=== PATIENT | female | born 1970 | race Caucasian/White ===

== ENCOUNTER 2016-09-08 19:32 | Emergency (ER) | payer MEDICARE, MEDICAID ==
[~2016-09-08] VITALS: Ht 162.6 cm; Wt 89.0 kg
[~2016-09-08 19:32] MED LIST: ACTO30TA10 PO; ALBUAER3 INH; IPRA17I INH; LISI10TA3 PO; NORT10CA PO; OMEP40CA2 PO; ONDA4TAB7 SL; PERC5TAB12 PO; PRAV20TA2 PO
[2016-09-08 19:34] VITALS: BP 171/85; PULSE 80; RESP 14; TEMP 97.9; O2SAT 97
--- NOTE | 2016-09-08 20:10 | PD ---
Physical Exam Date Seen by Provider: Sep 08, 2016 Time Seen by Provider: 20:06 Narrative Patient seen in triage with Miriad complaints of Generalized Pain and reports of syncope today. Patient reports Nausea and vomiting the past 24 hours. Patient also complains of SOB. Patient has Hx. Pancreatitis for which she sees Pain Management. Patient noted to be speaking in full sentences and ambulating normally. Vital Signs stable. Patient waiting for Bed Placement. Data Data Last Documented VS Vital Signs Date Time Temp Pulse Resp B/P Pulse Ox O2 Delivery O2 Flow Rate FiO2 09/08/16 19:34 97.9 80 14 171/85 97 Room Air [facility] Medical Record Reviewed: Yes Supervised Visit with ALBA: Yes Condition: Stable Pio Urrutia Sep 08, 2016 20:09
[2016-09-09] MEDS ORDERED: ONDANSETRON ODT 4 MG TAB PO ONE (00:15)
[2016-09-09 00:44] LABS: AUTOMATED NEUTROPHIL # 3.5 TH/MM3 (1.8-7.7); BASOPHIL # 0.1 TH/MM3 (0-0.2); BASOPHIL % 1.1 % (0.0-2.0); EOSINOPHIL # 0.1 TH/MM3 (0-0.4); EOSINOPHIL % 0.8 % (0.0-4.0); HEMATOCRIT 46.2 % (35.0-46.0); HEMO FLAGS DIFF FINAL; LYMPH % 36.7 % (9.0-44.0); LYMPHOCYTE # 2.4 TH/MM3 (1.0-4.8); MEAN CELL VOLUME 89.4 FL (80.0-100.0); MEAN CORPUSCULAR HEMOGLOBIN 29.5 PG (27.0-34.0); MONO % 6.8 % (0.0-8.0); NEUT % 54.6 % (16.0-70.0); PLATELET COUNT 244 TH/MM3 (150-450); RED BLOOD COUNT 5.17 MIL/MM3 (4.00-5.30); RED CELL DISTRIBUTION WIDTH 14.6 % (11.6-17.2); WHITE BLOOD COUNT 6.5 TH/MM3 (4.0-11.0)
[2016-09-09 01:00] VITALS: BP 156/78; PULSE 83; RESP 16; O2SAT 100
[2016-09-09 01:05] LABS: ALKALINE PHOSPHATASE 69 U/L (45-117); TOTAL BILIRUBIN ADULT 0.7 MG/DL (0.2-1.0)
[2016-09-09 01:08] LABS: ALT (GPT) 45 U/L (10-53); ANION GAP 7 MEQ/L (5-15); AST (GOT) 14 U/L (15-37); BICARBONATE 29.1 MEQ/L (21.0-32.0); BLOOD UREA NITROGEN 13 MG/DL (7-18); CHLORIDE 103 MEQ/L (98-107); GLOMERULAR FILTRATION RATE 103 ML/MIN (>89); POTASSIUM 4.2 MEQ/L (3.5-5.1); SODIUM (NA) 139 MEQ/L (136-145)
[2016-09-09 01:18] LABS: BACTERIA, URINE MANY /hpf; BLOOD, URINE NEG (NEG); COMMENT (UR) CULTURE INDICATED; CULTURE IF INDICATED CULTURE INDICATED; GLUCOSE,URINE 1000 mg/dL (NEG); KETONE, URINE 10 mg/dL (NEG); MUCUS URINE FEW /lpf (OCC); NITRITE,URINE NEG (NEG); SQUAMOUS EPITHELIAL CELL URINE 1 /hpf (0-5); URINE COLOR YELLOW (YELLW/STRAW)
--- NOTE | 2016-09-09 02:14 | PD ---
HPI Chief Complaint: GI Complaint Time Seen by Provider: 01:56 Travel History International Travel<30 days: No Contact w/Intl Traveler<30days: No Traveled to known affect area: No History of Present Illness HPI 46yo F with PMH of chronic back pain who follows with pain management for 3 months is here requesting pain medication through the IV. States the hydrocodone they give is too low and needs something through IV. States she is nauseous. Pt denies any trauma, fever, chest pain, sob, abdominal pain, urinary complaints, focal weakness or numbness. PFSH Past Medical History Blood Disorders: No Cancer: No Cardiovascular Problems: Yes (HTN) Cerebrovascular Accident: Yes (2011) Diabetes: Yes (PIOGLITAZONE) Patient Takes Glucophage: No Diminished Hearing: No Endocrine: No Genitourinary: Yes (NEUROGENIC BLADDER- SELF CATHS) Immune Disorder: No Kidney Stones: Yes Musculoskeletal: Yes (CHRONIC BACK PROBS) Neurologic: No Psychiatric: No Reproductive: No Respiratory: Yes (COPD) Immunizations Current: Yes Renal Failure: No Tetanus Vaccination: > 5 Years Influenza Vaccination: Yes ?: Not : 7 Para: 5 Miscarriage: 2 : 0 Tubal Ligation: Yes Past Surgical History Abdominal Surgery: No Cardiac Surgery: No Section: Yes Ear Surgery: No Endocrine Surgery: No Eye Surgery: No Genitourinary Surgery: No Gynecologic Surgery: Yes ( X2) Mastectomy: No Oral Surgery: No Thoracic Surgery: No Other Surgery: Yes (suprapubic catheter) Social History Alcohol Use: No Tobacco Use: No Substance Use: No Allergies-Medications (Allergen,Severity, Reaction): Coded Allergies: Morphine (Verified Allergy, Severe, 09/09/16) Reported Meds & Prescriptions Reported Meds & Active Scripts Active Ibuprofen 600 Mg Tab 600 Mg PO Q8HR PRN Ondansetron Odt 4 Mg Tab 4 Mg SL Q6HR PRN Percocet (Oxycodone-Acetaminophen) 5-325 mg Tab 1 Tab PO Q6H Nortriptyline (Nortriptyline HCl) 10 Mg Cap 10 Mg PO DAILY Pravastatin 20 Mg Tab 20 Mg PO DAILY Actos (Pioglitazone HCl) 30 Mg Tab 30 Mg PO DAILY Omeprazole 40 Mg Cap 40 Mg PO DAILY Atrovent HFA 12.9 GM Inh (Ipratropium [place]) 17 Mcg/Act Aer 1 Puff INH QID Lisinopril 10 Mg Tab 10 Mg PO DAILY Proair Hfa 8.5 GM Inh (Albuterol Sulfate) 90 Mcg/Act Aer 2 Puff INH Q4HR PRN 108 mcg/actuation Review of Systems Except as stated in HPI: all other systems reviewed are Neg Physical Exam Narrative GENERAL: 46yo F not in distress. SKIN: Focused skin assessment warm/dry. HEAD: Atraumatic. Normocephalic. EYES: Pupils equal and round. No scleral icterus. No injection or drainage. ENT: No nasal bleeding or discharge. Mucous membranes pink and moist. NECK: Trachea midline. No JVD. CARDIOVASCULAR: Regular rate and rhythm. No murmur appreciated. RESPIRATORY: No accessory muscle use. Clear to auscultation. Breath sounds equal bilaterally. GASTROINTESTINAL: Abdomen soft, non-tender, nondistended. BACK: No midline ttp. Paraspinal lumbar ttp on both sides. MUSCULOSKELETAL: No obvious deformities. No clubbing. No cyanosis. No edema. NEUROLOGICAL: Awake and alert. No obvious cranial nerve deficits. Motor grossly within normal limits. Normal speech. PSYCHIATRIC: Appropriate mood and affect; insight and judgment normal. Data Data Last Documented VS Vital Signs Date Time Temp Pulse Resp B/P Pulse Ox O2 Delivery O2 Flow Rate FiO2 09/09/16 01:00 83 16 156/78 100 Room Air 09/08/16 19:34 97.9 Orders Complete Blood Count With Diff (09/09/16 00:15) Comprehensive Metabolic Panel (09/09/16 00:15) Lipase (09/09/16 00:15) Urinalysis - C+S If Indicated (09/09/16 00:15) Iv Access Insert/Monitor (09/09/16 00:15) Ondansetron Odt (Zofran Odt) (09/09/16 00:15) Ed Urine Pregnancytest Poc (09/09/16 00:15) Urine Culture (09/09/16 00:25) Ketorolac Inj (Toradol Inj) (09/09/16 02:15) Ceftriaxone Inj (Rocephin Inj) (09/09/16 02:15) Labs Laboratory Tests Test 09/09/16 00:25 White Blood Count 6.5 TH/MM3 Red Blood Count 5.17 MIL/MM3 Hemoglobin 15.3 GM/DL Hematocrit 46.2 % Mean Corpuscular Volume 89.4 FL Mean Corpuscular Hemoglobin 29.5 PG Mean Corpuscular Hemoglobin 33.0 % Concent Red Cell Distribution Width 14.6 % Platelet Count 244 TH/MM3 Mean Platelet Volume 7.4 FL Neutrophils (%) (Auto) 54.6 % Lymphocytes (%) (Auto) 36.7 % Monocytes (%) (Auto) 6.8 % Eosinophils (%) (Auto) 0.8 % Basophils (%) (Auto) 1.1 % Neutrophils # (Auto) 3.5 TH/MM3 Lymphocytes # (Auto) 2.4 TH/MM3 Monocytes # (Auto) 0.4 TH/MM3 Eosinophils # (Auto) 0.1 TH/MM3 Basophils # (Auto) 0.1 TH/MM3 CBC Comment DIFF FINAL Differential Comment Urine Color YELLOW Urine Turbidity CLOUDY Urine pH 8.0 Urine Specific [place] 1.024 Urine Protein 100 mg/dL Urine Glucose (UA) 1000 mg/dL Urine Ketones 10 mg/dL Urine Occult Blood NEG Urine Nitrite NEG Urine Bilirubin NEG Urine Urobilinogen 2.0 MG/DL Urine Leukocyte Esterase LARGE Urine RBC 10 /hpf Urine WBC 40 /hpf Urine Squamous Epithelial 1 /hpf Cells Urine Bacteria MANY /hpf Urine Mucus FEW /lpf Urine Yeast (Budding) MANY Microscopic Urinalysis Comment CULTURE INDICATED Sodium Level 139 MEQ/L Potassium Level 4.2 MEQ/L Chloride Level 103 MEQ/L Carbon Dioxide Level 29.1 MEQ/L Anion Gap 7 MEQ/L Blood Urea Nitrogen 13 MG/DL Creatinine 0.62 MG/DL Estimat Glomerular Filtration 103 ML/MIN Rate Random Glucose 143 MG/DL Calcium Level 9.0 MG/DL Total Bilirubin 0.7 MG/DL Aspartate Amino Transf 14 U/L (AST/SGOT) Alanine Aminotransferase 45 U/L (ALT/SGPT) Alkaline Phosphatase 69 U/L Total Protein 7.6 GM/DL Albumin 4.3 GM/DL Lipase 82 U/L [facility] Medical Decision Making Medical Screen Exam Complete: Yes Emergency Medical Condition: Yes Interpretation(s) Laboratory Tests Test 09/09/16 00:25 White Blood Count 6.5 TH/MM3 (4.0-11.0) Red Blood Count 5.17 MIL/MM3 (4.00-5.30) Hemoglobin 15.3 GM/DL (11.6-15.3) Hematocrit 46.2 % (35.0-46.0) Mean Corpuscular Volume 89.4 FL (80.0-100.0) Mean Corpuscular Hemoglobin 29.5 PG (27.0-34.0) Mean Corpuscular Hemoglobin 33.0 % Concent (32.0-36.0) Red Cell Distribution Width 14.6 % (11.6-17.2) Platelet Count 244 TH/MM3 (150-450) Mean Platelet Volume 7.4 FL (7.0-11.0) Neutrophils (%) (Auto) 54.6 % (16.0-70.0) Lymphocytes (%) (Auto) 36.7 % (9.0-44.0) Monocytes (%) (Auto) 6.8 % (0.0-8.0) Eosinophils (%) (Auto) 0.8 % (0.0-4.0) Basophils (%) (Auto) 1.1 % (0.0-2.0) Neutrophils # (Auto) 3.5 TH/MM3 (1.8-7.7) Lymphocytes # (Auto) 2.4 TH/MM3 (1.0-4.8) Monocytes # (Auto) 0.4 TH/MM3 (0-0.9) Eosinophils # (Auto) 0.1 TH/MM3 (0-0.4) Basophils # (Auto) 0.1 TH/MM3 (0-0.2) CBC Comment DIFF FINAL Differential Comment Urine Color YELLOW (YELLW/STRAW) Urine Turbidity CLOUDY (CLEAR) Urine pH 8.0 (5.0-8.5) Urine Specific [place] 1.024 (1.002-1.035) Urine Protein 100 mg/dL (NEG-TRACE) Urine Glucose (UA) 1000 mg/dL (NEG) Urine Ketones 10 mg/dL (NEG) Urine Occult Blood NEG (NEG) Urine Nitrite NEG (NEG) Urine Bilirubin NEG (NEG) Urine Urobilinogen 2.0 MG/DL (LESS THAN 2.0) Urine Leukocyte Esterase LARGE (NEG) Urine RBC 10 /hpf (0-3) Urine WBC 40 /hpf (0-5) Urine Squamous Epithelial 1 /hpf (0-5) Cells Urine Bacteria MANY /hpf (NONE) Urine Mucus FEW /lpf (OCC) Urine Yeast (Budding) MANY (NONE) Microscopic Urinalysis Comment CULTURE INDICATED Sodium Level 139 MEQ/L (136-145) Potassium Level 4.2 MEQ/L (3.5-5.1) Chloride Level 103 MEQ/L (98-107) Carbon Dioxide Level 29.1 MEQ/L (21.0-32.0) Anion Gap 7 MEQ/L (5-15) Blood Urea Nitrogen 13 MG/DL (7-18) Creatinine 0.62 MG/DL (0.50-1.00) Estimat Glomerular Filtration 103 ML/MIN Rate (>89) Random Glucose 143 MG/DL (74-106) Calcium Level 9.0 MG/DL (8.5-10.1) Total Bilirubin 0.7 MG/DL (0.2-1.0) Aspartate Amino Transf 14 U/L (15-37) (AST/SGOT) Alanine Aminotransferase 45 U/L (10-53) (ALT/SGPT) Alkaline Phosphatase 69 U/L (45-117) Total Protein 7.6 GM/DL (6.4-8.2) Albumin 4.3 GM/DL (3.4-5.0) Lipase 82 U/L (73-393) Differential Diagnosis Chronic pain vs. malingering Narrative Course 46yo F with chronic back pain requesting pain medication. Labs reviewed, no leukocytosis. Glucose 143. Lipase normal. LFTs normal. UA showed large leukocyte. Pt given ceftriaxone and toradol for pain. Return precautions given. Diagnosis Primary Impression: Chronic back pain Qualified Code: M54.5 - Chronic bilateral low back pain without sciatica Additional Impression: UTI (urinary tract infection) Qualified Code: N39.0 - Urinary tract infection without hematuria, site unspecified Patient Instructions: General Instructions Departure Forms: Tests/Procedures Additional Instructions: Please follow up with your pain management for further management of your chronic back pain. Return to the ED if symptoms worsen. Med/Other Pt SpecificInfo: Prescription(s) given Scripts Ciprofloxacin 250 Mg [id number] Mg PO BID 3 Days Ref 0 Prov:Angelina Gomez DO 09/09/16 Ibuprofen 600 Mg [id number] Mg PO Q8HR PRN (PAIN) #20 TAB Ref 0 Prov:Angelina Gomez DO 09/09/16 Disposition: 01 DISCHARGE HOME Condition: Stable Angelina Gomez DO Sep 09, 2016 02:14
[2016-09-09] MEDS ORDERED: KETOROLAC TROMETHAMINE 30 MG/ML (IVP) VIAL IV PUSH ONE (02:15)
[2016-09-09] MEDS ORDERED: cefTRIAXone INJ 1,000 MG in SODIUM CHLORIDE 0.9% INJ 100 ML IV ONE (02:15)
[2016-09-09] MEDS ORDERED: IBUP-232 PO (04:17)
[2016-09-09] MEDS ORDERED: CIPR250T2 PO (04:27)
[2016-09-09 05:06] VITALS: BP 135/77
[2016-10-02] MEDS ORDERED: PERC5TAB12 PO (15:18)
[2016-10-13] MEDS ORDERED: ALBUAER3 INH (15:37)
[2016-10-26] MEDS ORDERED: PIOG45TA3 PO (09:31)
[2016-10-31] MEDS ORDERED: PERC5TAB12 PO (15:19)
[2016-12-01] MEDS ORDERED: PERC5TAB12 PO (12:52)
== END 2016-09-09 05:08 | disposition home or self-care (01) ==
LOC: NEPC 19:32
DX: M54.5 Low back pain (principal); G89.29 Other chronic pain; N39.0 Urinary tract infection, site not specified; B96.20 Unspecified Escherichia coli [E. coli] as the cause of diseases classified elsewhere
CPT/HCPCS: 80053; 81001; 83690; 84703; 85025; 87077; 87086; 87186; 96374; 96375; 99284; J0696; J1885

== ENCOUNTER 2016-09-25 19:55 | Emergency (ER) | payer MEDICARE, MEDICAID ==
[~2016-09-25] VITALS: Ht 162.6 cm; Wt 89.0 kg
[~2016-09-25 19:55] MED LIST changes: +CIPR250T2 PO; +IBUP-232 PO
[2016-09-25 19:59] VITALS: BP 146/75; PULSE 100; RESP 16; TEMP 97.5; O2SAT 98
[2016-09-25] MEDS ORDERED: HYDR-3516 PO (23:02)
[2016-09-25] MEDS ORDERED: BUSP15TA PO (23:03)
[2016-09-25] MEDS ORDERED: LURA40 PO (23:03)
[2016-09-25 23:15] VITALS: BP 149/90; PULSE 92; RESP 18; O2SAT 99
[2016-09-25] MEDS ORDERED: SODIUM CHLORID 0.9% 500 ML INJ 500 ML IV ONE (23:15)
[2016-09-25] MEDS ORDERED: PANTOPRAZOLE SODIUM 40 MG VIAL IV PUSH ONE (23:15)
[2016-09-25] MEDS ORDERED: ONDANSETRON HCL 4 MG/2 ML VIAL IV ONE (23:15)
[2016-09-25] MEDS ORDERED: ASPIRIN 81 MG CHEW TAB CHEW ONE (23:15)
[2016-09-25] MEDS ORDERED: SODIUM CHLORIDE 0.9% FLUSH 10 ML FLUSH IVF PRN (23:15)
--- NOTE | 2016-09-25 23:18 | PD ---
HPI Chief Complaint: Back/ Neck Pain or Injury Time Seen by Provider: 23:00 Travel History International Travel<30 days: No Contact w/Intl Traveler<30days: No Traveled to known affect area: No History of Present Illness HPI The patient is a 46 year old female who presents to the [facility] emergency department with a history of reported chronic back pain that has been worse over the last 2 months in spite of treatment by her pain management doctor. She reports that on July 26 she received injections in her back and on August 16 she also received injections in her back without relief. She reports that she asked her pain management doctor to increase her pain medication prescription, however they have not done this at this point. The patient additionally was recently seen in the emergency department related to an exacerbation of back pain and was diagnosed with a urinary tract infection. Urine culture came back positive for Escherichia coli that was not sensitive to Cipro. The patient was given a prescription for Cipro for 3 days. The patient reports that she was called back and a new prescription was prescribed, however she does not know the name of the antibiotic that she continues to be on. She reports having decreased urine output today. She denies having any dysuria or urinary urgency. She reports having bilateral flank pain. She reports that she has nausea related to her pain and did have vomiting 3 days ago. She denies any vomiting over the last 2 days. She denies having any changes in her stools. She reports that she last moved her bowels earlier today. The patient reports that today she also began to have a burning sensation in her left side of her chest. She reports that she has chronic shortness of breath related to bronchitis and asthma. She reports the chest pain has been constant. She reports that she did have a stress test done recently. Her last chemical stress test was done April 26, 2016 and according to the record Wiley was unremarkable. The patient denies any recent fevers, worsening cough or congestion, neck pain, or neurologic symptoms. The patient reports that she has not been eating or drinking well throughout the day today. She reports that she spent most of the day in bed. [facility] Past Medical History Narrative Medical The patient's past medical history significant for diabetes mellitus, hyperlipidemia, high blood pressure, history of chronic pain, history of headaches, history of psychiatric disorder, posttraumatic stress disorder, history of neurogenic bladder with history of self cathetering, history of cerebrovascular accident in 2011 Blood Disorders: No Anxiety: Yes Depression: Yes Cancer: No Cardiovascular Problems: Yes (HTN) Cerebrovascular Accident: Yes (2011) Diabetes: Yes (PIOGLITAZONE) Patient Takes Glucophage: No Diminished Hearing: No Endocrine: No Genitourinary: Yes (NEUROGENIC BLADDER- SELF CATHS) Immune Disorder: No Kidney Stones: Yes Musculoskeletal: Yes (CHRONIC BACK PROBS) Neurologic: No Psychiatric: No Reproductive: No Respiratory: Yes (COPD) Immunizations Current: Yes Renal Failure: No ?: Not LMP: 09/14/2016 : 7 Para: 5 Miscarriage: 2 : 0 Tubal Ligation: Yes Past Surgical History Narrative Surgical The patient's past surgical history is significant for a 2. Abdominal Surgery: No Cardiac Surgery: No Section: Yes Ear Surgery: No Endocrine Surgery: No Eye Surgery: No Genitourinary Surgery: No Gynecologic Surgery: Yes ( X2) Mastectomy: No Oral Surgery: No Thoracic Surgery: No Other Surgery: Yes (suprapubic catheter) Social History Alcohol Use: No Tobacco Use: No Substance Use: No Allergies-Medications (Allergen,Severity, Reaction): Coded Allergies: Morphine (Verified Allergy, Severe, 09/09/16) Reported Meds & Prescriptions Reported Meds & Active Scripts Active Ciprofloxacin (Ciprofloxacin HCl) 250 Mg Tab 250 Mg PO BID 3 Days Ibuprofen 600 Mg Tab 600 Mg PO Q8HR PRN Ondansetron Odt 4 Mg Tab 4 Mg SL Q6HR PRN Percocet (Oxycodone-Acetaminophen) 5-325 mg Tab 1 Tab PO Q6H Nortriptyline (Nortriptyline HCl) 10 Mg Cap 10 Mg PO DAILY Pravastatin 20 Mg Tab 20 Mg PO DAILY Actos (Pioglitazone HCl) 30 Mg Tab 30 Mg PO DAILY Omeprazole 40 Mg Cap 40 Mg PO DAILY Atrovent HFA 12.9 GM Inh (Ipratropium [place]) 17 Mcg/Act Aer 1 Puff INH QID Lisinopril 10 Mg Tab 10 Mg PO DAILY Proair Hfa 8.5 GM Inh (Albuterol Sulfate) 90 Mcg/Act Aer 2 Puff INH Q4HR PRN 108 mcg/actuation Reported Buspirone (Buspirone HCl) 15 Mg Tab 15 Mg PO DAILY Latuda (Lurasidone) 40 Mg Tab 40 Mg PO DAILY Hydrocodone-Acetaminophen 5-325 mg Tab 1 Tab PO Q12HR PRN Review of Systems General / Constitutional: No: Fever Eyes: No: Visual changes HENT: No: Headaches Cardiovascular: Positive: Chest Pain or Discomfort, Dyspnea on exertion Respiratory: Positive: Shortness of Breath Gastrointestinal: Positive: Nausea, Vomiting, Abdominal Pain, Indigestion, Loss of Appetite, No: Diarrhea, Hematemesis, Hematochezia, Constipation, Changes in Bowel Habits Genitourinary: Positive: Decreased Urinary Output, Flank Pain (bilateral flank pain), No: Dysuria Musculoskeletal: No: Pain Skin: No Rash Neurologic: No: Weakness, Focal Abnormalities, Change in Mentation, Slurred Speech, Sensory Disturbance Psychiatric: No: Depression Endocrine: No: Polydipsia Hematologic/Lymphatic: No: Easy Bruising Physical Exam Narrative General: The patient is a well-developed well-nourished female in no acute distress. Head and Neck exam: Head is normocephalic atraumatic. Eyes: EOMI, pupils are equal round and reactive to light. Nose: Midline septum with pink mucous membranes Mouth: Dentition unremarkable. Moist mucus membranes. Posterior oropharynx is not erythematous. No tonsillar hypertrophy. Uvula midline. Airway patent. Neck: No palpable lymphadenopathy. No nuchal rigidity. No thyromegaly. Cardiovascular: Regular rate and rhythm without murmurs, gallops, or rubs. No pulse deficit to the extremities. Lungs: Clear to auscultation bilaterally. No wheezes, rhonchi, or rales. Abdomen: Soft, without tenderness to palpation in all 4 quadrants of the abdomen. No guarding, rebound, or rigidity. Normal bowel sounds are audible. No tenderness on palpation of McBurney's point. Negative Gonzalez's sign. Extremities: No clubbing, cyanosis, or edema. 2+ pulses in all 4 extremities. Back: No spinous process tenderness to palpation. Bilateral CVA tenderness on palpation. Neurologic Exam: Grossly nonfocal. Skin Exam: No rash noted. Intact skin that is warm and dry. Data Data Last Documented VS Vital Signs Date Time Temp Pulse Resp B/P Pulse Ox O2 Delivery O2 Flow Rate FiO2 09/25/16 19:59 97.5 100 16 146/75 98 Room Air Orders Electrocardiogram (09/25/16 23:09) B-Type Natriuretic Peptide (09/25/16 23:09) Ckmb (Isoenzyme) Profile (09/25/16 23:09) Complete Blood Count With Diff (09/25/16 23:09) Comprehensive Metabolic Panel (09/25/16 23:09) Magnesium (Mg) (09/25/16 23:09) Prothrombin Time / Inr (Pt) (09/25/16 23:09) Act Partial Throm Time (Ptt) (09/25/16 23:09) Troponin I (09/25/16 23:09) Lipase (09/25/16 23:09) Chest, Single Ap (09/25/16 23:09) Ecg Monitoring (09/25/16 23:09) Bilateral Bp Monitoring (09/25/16:) Iv Access Insert/Monitor (09/25/16:) Oximetry (09/25/16 23:09) Oxygen Administration (09/25/16 23:09) Sodium Chloride 0.9% Flush (Ns Flush) (09/25/16 23:15) Urinalysis - C+S If Indicated (09/25/16 23:09) Ed Urine Pregnancytest Poc (09/25/16 23:09) Sodium Chlorid 0.9% 500 Ml Inj (Ns 500 M (09/25/16 23:15) Pantoprazole Inj (Protonix Inj) (09/25/16 23:15) Aspirin Chew (Aspirin Chew) (09/25/16 23:15) Ondansetron Inj (Zofran Inj) (09/25/16 23:15) Urine Culture (09/25/16 23:35) Hydromorphone Pf Inj (Dilaudid Pf Inj) (09/26/16 00:00) Ceftriaxone Inj (Rocephin Inj) (09/26/16 00:15) Labs Laboratory Tests Test 09/25/16 09/25/16 23:25 23:35 White Blood Count 7.0 TH/MM3 Red Blood Count 5.11 MIL/MM3 Hemoglobin 15.3 GM/DL Hematocrit 44.7 % Mean Corpuscular Volume 87.5 FL Mean Corpuscular Hemoglobin 30.0 PG Mean Corpuscular Hemoglobin 34.3 % Concent Red Cell Distribution Width 14.3 % Platelet Count 294 TH/MM3 Mean Platelet Volume 7.8 FL Neutrophils (%) (Auto) 60.6 % Lymphocytes (%) (Auto) 30.2 % Monocytes (%) (Auto) 7.2 % Eosinophils (%) (Auto) 1.0 % Basophils (%) (Auto) 1.0 % Neutrophils # (Auto) 4.2 TH/MM3 Lymphocytes # (Auto) 2.1 TH/MM3 Monocytes # (Auto) 0.5 TH/MM3 Eosinophils # (Auto) 0.1 TH/MM3 Basophils # (Auto) 0.1 TH/MM3 CBC Comment DIFF FINAL Differential Comment Prothrombin Time 10.1 SEC Prothromb Time International 0.9 RATIO Ratio Activated Partial 23.9 SEC Thromboplast Time Sodium Level 136 MEQ/L Potassium Level 3.9 MEQ/L Chloride Level 100 MEQ/L Carbon Dioxide Level 27.3 MEQ/L Anion Gap 9 MEQ/L Blood Urea Nitrogen 9 MG/DL Creatinine 0.68 MG/DL Estimat Glomerular Filtration 93 ML/MIN Rate Random Glucose 194 MG/DL Calcium Level 8.9 MG/DL Magnesium Level 1.7 MG/DL Total Bilirubin 0.3 MG/DL Aspartate Amino Transf 16 U/L (AST/SGOT) Alanine Aminotransferase 47 U/L (ALT/SGPT) Alkaline Phosphatase 81 U/L Total Creatine Kinase 37 U/L Troponin I LESS THAN 0.02 NG/ML Total Protein 7.4 GM/DL Albumin 3.9 GM/DL Lipase 99 U/L Urine Color YELLOW Urine Turbidity HAZY Urine pH 5.0 Urine Specific Lynn 1.033 Urine Protein TRACE mg/dL Urine Glucose (UA) 1000 mg/dL Urine Ketones TRACE mg/dL Urine Occult Blood TRACE Urine Nitrite NEG Urine Bilirubin NEG Urine Urobilinogen LESS THAN 2.0 MG/DL Urine Leukocyte Esterase SMALL Urine RBC 2 /hpf Urine WBC 19 /hpf Urine Squamous Epithelial 1 /hpf Cells Urine Bacteria MOD /hpf Urine Mucus MANY /lpf Microscopic Urinalysis Comment CULTURE INDICATED MDM Medical Decision Making Medical Screen Exam Complete: Yes Emergency Medical Condition: Yes Medical Record Reviewed: Yes Interpretation(s) Last Impressions Chest X-Ray 09/25/16 [id number] Signed Impressions: Service Date/Time: Sunday, September 25, 2016 23:37 - CONCLUSION: Normal examination. Sachin Velasco MD Differential Diagnosis Pyelonephritis, versus kidney stone, versus exacerbation of chronic pain. Narrative Course During the course of the patients emergency department visit, the patients history, examination, and differential diagnosis were reviewed with the patient. The patient had IV access obtained and blood work sent for analysis. The patient was placed on a night monitor with oximetry and blood pressure monitoring. The patient's electronic medical record was reviewed. The patient last had a stress test done in the chest pain center in April 26, 2016. This is a chemical stress test that was reportedly negative. The patient had an EKG done today that reveals a sinus rhythm heart rate of 82, no acute ST segment elevation or depression. The patient was initially provided aspirin 162 mg by mouth 1, Protonix 40 mg IV , normal saline a 500 mL bolus 1, hydromorphone 0.5 mg IV, Zofran 4 mg IV. The patients laboratory studies were reviewed and remarkable for a CBC that is within normal limits, PT 10.1, PTT 23.9, urinalysis shows about glucose trace ketones trace occult blood, small leukocyte Estrace 2 RBCs 19 WBCs 1 squamous epithelial cell, moderate bacteria, many mucus, culture indicated. Based on the patient's prior urine culture the patient was given Rocephin 1 g IV as the patient's Escherichia coli was sensitive to this. CMP is remarkable for a glucose of 194, CPK 37, troponin I less than 0.02, lipase 99 Radiology studies were reviewed and remarkable for a chest x-ray that shows no acute abnormality. Unfortunately, the patient is not able to recall what antibiotic she was previously placed on for her urinary tract infection. The patient was treated with a dose of IV Rocephin which her urinary tract infection is sensitive to. The patient will be discharged home with a prescription for Cefuroxime for 10 days. Regarding the patient's chronic back pain, she was instructed to follow- up with her pain management doctor in the morning to further discuss management options. The patient is resting comfortably and feels better, is alert and in no distress. The patients results and examination findings were discussed with the patient. The repeat examination is unremarkable and benign. The history, exam, diagnostic testing, and current condition do not suggest any significant pathology to warrant further testing, continued ED treatment, admission, or surgical evaluation at this point. The vital signs have been stable. The patient does not have uncontrollable pain, intractable vomiting, or other significant symptoms. The patient's condition is stable and appropriate for discharge. The patient will pursue further outpatient evaluation with a primary care physician or other designated or consulting physician as indicated in the discharge instructions. The patient expressed understanding and was agreeable with this plan. Diagnosis Primary Impression: UTI (urinary tract infection) Qualified Code: T83.511D - Urinary tract infection associated with catheterization of urinary tract, unspecified indwelling urinary catheter type, subsequent encounter Additional Impression: Chronic back pain Qualified Code: M54.5 - Chronic bilateral low back pain without sciatica Referrals: Pain Management 1 day Primary Care Physician 2 days Patient Instructions: Chronic Back Pain (ED), General Instructions, Urinary Tract Infection in Women (ED) Med/Other Pt SpecificInfo: Prescription(s) given Scripts Cefuroxime (Ceftin)500 Mg [id number] Mg PO BID 10 Days Ref 0 Prov:Renita Fragoso MD 09/26/16 Disposition: 01 DISCHARGE HOME Condition: Stable Renita Fragoso MD Sep 25, 2016 23:18
[2016-09-25 23:45] LABS: AUTOMATED NEUTROPHIL # 4.2 TH/MM3 (1.8-7.7); BASOPHIL # 0.1 TH/MM3 (0-0.2); EOSINOPHIL # 0.1 TH/MM3 (0-0.4); HEMATOCRIT 44.7 % (35.0-46.0); HEMO FLAGS DIFF FINAL; LYMPH % 30.2 % (9.0-44.0); LYMPHOCYTE # 2.1 TH/MM3 (1.0-4.8); MEAN CELL VOLUME 87.5 FL (80.0-100.0); MEAN CORPUSCULAR HGB CONC 34.3 % (32.0-36.0); MONO % 7.2 % (0.0-8.0); NEUT % 60.6 % (16.0-70.0); PLATELET COUNT 294 TH/MM3 (150-450); RED BLOOD COUNT 5.11 MIL/MM3 (4.00-5.30); RED CELL DISTRIBUTION WIDTH 14.3 % (11.6-17.2)
[2016-09-25 23:52] LABS: BACTERIA, URINE MOD /hpf; BLOOD, URINE TRACE (NEG); COMMENT (UR) CULTURE INDICATED; CULTURE IF INDICATED CULTURE INDICATED; GLUCOSE,URINE 1000 mg/dL (NEG); KETONE, URINE TRACE mg/dL (NEG); MUCUS URINE MANY /lpf (OCC); NITRITE,URINE NEG (NEG); SQUAMOUS EPITHELIAL CELL URINE 1 /hpf (0-5); URINE COLOR YELLOW (YELLW/STRAW)
[2016-09-25 23:55] LABS: APTT (PATIENT) 23.9 SEC (24.3-30.1); INTERNATIONAL NORMALIZED RATIO 0.9 RATIO; PROTHROMBIN TIME - PATIENT 10.1 SEC (9.8-11.6)
--- NOTE | 2016-09-25 23:59 | RADRPT ---
EXAM DATE/TIME: 09/25/2016 23:37 [facility] COMPARISON: CHEST SINGLE AP, April 26, 2016, 7:33. INDICATIONS : Chest pain. MEDICAL HISTORY : Chronic obstructive pulmonary disease. Hypertension. Diabetes mellitus type 2. SURGICAL HISTORY : None. ENCOUNTER: Initial ACUITY: 1 day PAIN SCORE: 4/10 LOCATION: chest FINDINGS: A single view of the chest demonstrates the lungs to be symmetrically aerated without evidence of mas s, infiltrate or effusion. The cardiomediastinal contours are unremarkable. Osseous structures are intact. CONCLUSION: Normal examination. Sachin Velasco MD on September 25, 2016 at 23:57 Board Certified Radiologist. This report was verified electronically.
[2016-09-26] VITALS: BP 123/79; PULSE 84; RESP 18; O2SAT 98
[2016-09-26] MEDS ORDERED: HYDROmorphone HCL PF 1 MG/ML VIAL IV PUSH ONE
[2016-09-26 00:06] LABS: ALT (GPT) 47 U/L (10-53); ANION GAP 9 MEQ/L (5-15); AST (GOT) 16 U/L (15-37); BICARBONATE 27.3 MEQ/L (21.0-32.0); BLOOD UREA NITROGEN 9 MG/DL (7-18); CHLORIDE 100 MEQ/L (98-107); GLOMERULAR FILTRATION RATE 93 ML/MIN (>89); MAGNESIUM 1.7 MG/DL (1.5-2.5); POTASSIUM 3.9 MEQ/L (3.5-5.1); SODIUM (NA) 136 MEQ/L (136-145)
[2016-09-26 00:10] LABS: ALKALINE PHOSPHATASE 81 U/L (45-117); CREATINE KINASE 37 U/L (26-192); TOTAL BILIRUBIN ADULT 0.3 MG/DL (0.2-1.0)
[2016-09-26] MEDS ORDERED: cefTRIAXone INJ 1,000 MG in SODIUM CHLORIDE 0.9% INJ 100 ML IV ONE (00:15)
[2016-09-26] MEDS ORDERED: CEFT500T3 PO (00:47)
[2016-09-26 01:07] VITALS: BP 132/85; PULSE 85; RESP 18; O2SAT 96
--- NOTE | 2016-09-26 11:32 | EKG ---
Date Performed: 09/26/2016 Time Performed: 00:32:34 PTAGE: 46 years EKG: Sinus rhythm NORMAL ECG PREVIOUS TRACING : 04/26/2016 14.03 DOCTOR: Antonio Telles Interpretating Date/Time 09/26/2016 11:29:34
[2016-10-02] MEDS ORDERED: PERC5TAB12 PO (15:18)
[2016-10-13] MEDS ORDERED: ALBUAER3 INH (15:37)
[2016-10-26] MEDS ORDERED: PIOG45TA3 PO (09:31)
[2016-10-31] MEDS ORDERED: PERC5TAB12 PO (15:19)
[2016-12-01] MEDS ORDERED: PERC5TAB12 PO (12:52)
== END 2016-09-26 02:03 | disposition home or self-care (01) ==
LOC: NEPE 19:55
DX: N39.0 Urinary tract infection, site not specified (principal); B96.29 Other Escherichia coli [E. coli] as the cause of diseases classified elsewhere; E11.9 Type 2 diabetes mellitus without complications; I10 Essential (primary) hypertension; Z87.442 Personal history of urinary calculi
CPT/HCPCS: 71010; 80053; 81001; 82550; 83690; 83735; 83880; 84484; 84703; 85025; 85610; 85730; 87077; 87086; 87186; 93005; 96361; 96365; 96375; 99284; C9113; J0696; J1170; J2405; J7040

== ENCOUNTER 2016-10-21 10:46 | Emergency (ER) | payer MEDICARE, MEDICAID ==
[~2016-10-21] VITALS: Ht 162.6 cm; Wt 80.0 kg
[~2016-10-21 10:46] MED LIST changes: +BUSP15TA PO; +CEFT500T3 PO; +HYDR-3516 PO; +LURA40 PO
[2016-10-21 10:58] VITALS: BP 166/88; PULSE 88; RESP 16; TEMP 98.1; O2SAT 97
--- NOTE | 2016-10-21 11:14 | PD ---
HPI Chief Complaint: Back/ Neck Pain or Injury Time Seen by Provider: 10:48 Travel History International Travel<30 days: No Contact w/Intl Traveler<30days: No Traveled to known affect area: No History of Present Illness HPI This is a 46 year old female who presents to the emergency department with chest pain and back pain. Pt. reports that for one month she has been having sharp pain, intermittent, worse with exertion, improved with rest. It is non- radiating, 9/10 severity. Pt. also reports some shortness of breath, brought on by exertion, and chronic back pain that has been going on for several years. She has a history of chronic pancreatitis. She does have a history of diabetes and hypertension. PFSH Past Medical History Blood Disorders: No Anxiety: Yes Depression: Yes Cancer: No Cardiovascular Problems: Yes (HTN) Cerebrovascular Accident: Yes (2011) Diabetes: Yes (PIOGLITAZONE) Diminished Hearing: No Endocrine: No Genitourinary: Yes (NEUROGENIC BLADDER- SELF CATHS) Immune Disorder: No Kidney Stones: Yes Musculoskeletal: Yes (CHRONIC BACK PROBS) Neurologic: No Psychiatric: No Reproductive: No Respiratory: Yes (COPD) Immunizations Current: Yes Renal Failure: No Tetanus Vaccination: Unknown Influenza Vaccination: Yes ?: Unknown : 7 Para: 5 Miscarriage: 2 : 0 Tubal Ligation: Yes Past Surgical History Abdominal Surgery: No Cardiac Surgery: No Section: Yes Ear Surgery: No Endocrine Surgery: No Eye Surgery: No Genitourinary Surgery: No Gynecologic Surgery: Yes ( X2) Mastectomy: No Oral Surgery: No Thoracic Surgery: No Other Surgery: Yes (suprapubic catheter) Social History Alcohol Use: No Tobacco Use: No Substance Use: No Allergies-Medications (Allergen,Severity, Reaction): Coded Allergies: Morphine (Verified Allergy, Severe, 09/09/16) Reported Meds & Prescriptions Reported Meds & Active Scripts Active Proair Hfa 8.5 GM Inh (Albuterol Sulfate) 90 Mcg/Act Aer 2 Puff INH Q4HR PRN 108 mcg/actuation Percocet (Oxycodone-Acetaminophen) 5-325 mg Tab 1 Tab PO Q6H Ceftin (Cefuroxime Axetil) 500 Mg Tab 500 Mg PO BID 10 Days Ciprofloxacin (Ciprofloxacin HCl) 250 Mg Tab 250 Mg PO BID 3 Days Ibuprofen 600 Mg Tab 600 Mg PO Q8HR PRN Ondansetron Odt 4 Mg Tab 4 Mg SL Q6HR PRN Nortriptyline (Nortriptyline HCl) 10 Mg Cap 10 Mg PO DAILY Pravastatin 20 Mg Tab 20 Mg PO DAILY Actos (Pioglitazone HCl) 30 Mg Tab 30 Mg PO DAILY Omeprazole 40 Mg Cap 40 Mg PO DAILY Atrovent HFA 12.9 GM Inh (Ipratropium [place]) 17 Mcg/Act Aer 1 Puff INH QID Lisinopril 10 Mg Tab 10 Mg PO DAILY Reported Buspirone (Buspirone HCl) 15 Mg Tab 15 Mg PO DAILY Latuda (Lurasidone) 40 Mg Tab 40 Mg PO DAILY Hydrocodone-Acetaminophen 5-325 mg Tab 1 Tab PO Q12HR PRN Review of Systems Except as stated in HPI: all other systems reviewed are Neg Physical Exam Narrative GENERAL:Well appearing, no acute distress SKIN: Focused skin assessment warm and dry. HEAD: Atraumatic. Normocephalic. EYES: Pupils equal and round. No injection or drainage. ENT: Moist mucous membranes NECK: Trachea midline. CARDIOVASCULAR: Regular rate and rhythm. No murmur appreciated. Tender to palpation over left upper chest wall. RESPIRATORY: Clear to auscultation. Breath sounds equal bilaterally. GASTROINTESTINAL: Abdomen soft, non-tender, nondistended. MUSCULOSKELETAL: No obvious deformities. NEUROLOGICAL: Awake and alert. No obvious cranial nerve deficits. Moving all extremities. PSYCHIATRIC: Appropriate mood and affect; insight and judgment normal. Data Data Last Documented VS Vital Signs Date Time Temp Pulse Resp B/P Pulse Ox O2 Delivery O2 Flow Rate FiO2 10/21/16 11:36 98 Room Air 10/21/16 11:36 85 10/21/16 11:36 16 166/88 10/21/16 10:58 98.1 Orders Electrocardiogram (10/21/16 11:21) Complete Blood Count With Diff (10/21/16 11:21) Comprehensive Metabolic Panel (10/21/16 11:21) Magnesium (Mg) (10/21/16 11:21) Troponin I (10/21/16 11:21) Lipase (10/21/16 11:21) Chest, Single Ap (10/21/16 11:21) Ecg Monitoring (10/21/16 11:21) Bilateral Bp Monitoring (10/21/16 11:21) Iv Access Insert/Monitor (10/21/16 11:21) Oximetry (10/21/16 11:21) Oxygen Administration (10/21/16 11:21) Aspirin Chew (Aspirin Chew) (10/21/16 11:30) Sodium Chloride 0.9% Flush (Ns Flush) (10/21/16 11:30) Labs Laboratory Tests Test 10/21/16 11:30 White Blood Count 5.3 TH/MM3 Red Blood Count 4.89 MIL/MM3 Hemoglobin 14.7 GM/DL Hematocrit 43.4 % Mean Corpuscular Volume 88.7 FL Mean Corpuscular Hemoglobin 30.1 PG Mean Corpuscular Hemoglobin 34.0 % Concent Red Cell Distribution Width 14.5 % Platelet Count 266 TH/MM3 Mean Platelet Volume 7.8 FL Neutrophils (%) (Auto) 59.2 % Lymphocytes (%) (Auto) 28.8 % Monocytes (%) (Auto) 9.7 % Eosinophils (%) (Auto) 1.2 % Basophils (%) (Auto) 1.1 % Neutrophils # (Auto) 3.1 TH/MM3 Lymphocytes # (Auto) 1.5 TH/MM3 Monocytes # (Auto) 0.5 TH/MM3 Eosinophils # (Auto) 0.1 TH/MM3 Basophils # (Auto) 0.1 TH/MM3 CBC Comment DIFF FINAL Differential Comment Sodium Level 137 MEQ/L Potassium Level 4.7 MEQ/L Chloride Level 103 MEQ/L Carbon Dioxide Level 26.4 MEQ/L Anion Gap 8 MEQ/L Blood Urea Nitrogen 8 MG/DL Creatinine 0.62 MG/DL Estimat Glomerular Filtration 103 ML/MIN Rate Random Glucose 155 MG/DL Calcium Level 9.4 MG/DL Magnesium Level 2.1 MG/DL Total Bilirubin 0.5 MG/DL Aspartate Amino Transf 41 U/L (AST/SGOT) Alanine Aminotransferase 46 U/L (ALT/SGPT) Alkaline Phosphatase 59 U/L Troponin I LESS THAN 0.02 NG/ML Total Protein 7.6 GM/DL Albumin 4.1 GM/DL Lipase 61 U/L [facility] Medical Decision Making Medical Screen Exam Complete: Yes Emergency Medical Condition: Yes Interpretation(s) Afebrile, no tachycardia, hypertensive EKG: Normal sinus rhythm with possible Q waves in V3 and V4 No leukocytosis Electrolytes are reassuring Troponin is normal Lipase is normal Chest x-ray: No acute process Differential Diagnosis Acute coronary syndrome, pulmonary embolism, pneumonia, chronic pain Narrative Course This is a 46-year-old female who has a history of chronic pain who presents the emergency department with chest pain and back pain that have both been going on for months. EKG was reassuring. Labs are unremarkable. Chest x-ray was unremarkable. She just had a stress test in April which was normal. I don' t think she requires any additional provocative testing at this time. Patient appears very well and wants to leave. She appears to have some developmental delay which may be contributing to her recurrent presentations to the emergency department. She was discharged home. Diagnosis Primary Impression: Atypical chest pain Patient Instructions: General Instructions Additional Instructions: If you develop severe chest pain, shortness of breath, sweating, lightheadedness , dizziness or difficulty breathing return to the emergency department immediately. Followup with your primary care physician in 2-3 days if your symptoms are not resolved. Med/Other Pt SpecificInfo: No Change to Meds Disposition: 01 DISCHARGE HOME Condition: Stable Maria Victoria Henry MD October 21, 2016 11:14
[2016-10-21] MEDS ORDERED: ASPIRIN 81 MG CHEW TAB PO ONE (11:30)
[2016-10-21] MEDS ORDERED: SODIUM CHLORIDE 0.9% FLUSH 10 ML FLUSH IVF PRN (11:30)
[2016-10-21 11:36] VITALS: BP 166/88; PULSE 85; RESP 16; O2SAT 98
[2016-10-21 11:46] LABS: AUTOMATED NEUTROPHIL # 3.1 TH/MM3 (1.8-7.7); BASOPHIL # 0.1 TH/MM3 (0-0.2); BASOPHIL % 1.1 % (0.0-2.0); EOSINOPHIL # 0.1 TH/MM3 (0-0.4); EOSINOPHIL % 1.2 % (0.0-4.0); HEMATOCRIT 43.4 % (35.0-46.0); HEMO FLAGS DIFF FINAL; LYMPH % 28.8 % (9.0-44.0); LYMPHOCYTE # 1.5 TH/MM3 (1.0-4.8); MEAN CELL VOLUME 88.7 FL (80.0-100.0); MEAN CORPUSCULAR HEMOGLOBIN 30.1 PG (27.0-34.0); MONO % 9.7 % (0.0-8.0); NEUT % 59.2 % (16.0-70.0); PLATELET COUNT 266 TH/MM3 (150-450); RED BLOOD COUNT 4.89 MIL/MM3 (4.00-5.30); RED CELL DISTRIBUTION WIDTH 14.5 % (11.6-17.2); WHITE BLOOD COUNT 5.3 TH/MM3 (4.0-11.0)
--- NOTE | 2016-10-21 11:50 | RADRPT ---
EXAM DATE/TIME: 10/21/2016 11:18 [facility] COMPARISON: CHEST SINGLE AP, September 25, 2016, 23:37. INDICATIONS : Chest pains with back pains. MEDICAL HISTORY : Myocardial infarction. SURGICAL HISTORY : None. ENCOUNTER: Initial ACUITY: 1 day PAIN SCORE: 6/10 LOCATION: Right chest FINDINGS: A single view of the chest demonstrates the lungs to be symmetrically aerated without evidence of mas s, infiltrate or effusion. The cardiomediastinal contours are unremarkable. Osseous structures are intact. CONCLUSION: No acute disease. Jose Sears MD on October 21, 2016 at 11:45 Board Certified Radiologist. This report was verified electronically.
--- NOTE | 2016-10-21 11:57 | EKG ---
Date Performed: 10/21/2016 Time Performed: 11:07:41 PTAGE: 46 years EKG: Sinus rhythm POSSIBLE ANTERIOR MYOCARDIAL INFARCTION ABNORMAL ECG COMPARED TO PRIOR ELECTROCARDIOGRAM, Possible a nterior myocardial infarction is present. PREVIOUS TRACING : 09/26/2016 00.32 DOCTOR: Reji Root Interpretating Date/Time 10/21/2016 11:56:23
[2016-10-21 12:13] LABS: ALKALINE PHOSPHATASE 59 U/L (45-117); ALT (GPT) 46 U/L (10-53); TOTAL BILIRUBIN ADULT 0.5 MG/DL (0.2-1.0)
[2016-10-21 12:23] LABS: ANION GAP 8 MEQ/L (5-15); BICARBONATE 26.4 MEQ/L (21.0-32.0); BLOOD UREA NITROGEN 8 MG/DL (7-18); CHLORIDE 103 MEQ/L (98-107); GLOMERULAR FILTRATION RATE 103 ML/MIN (>89); SODIUM (NA) 137 MEQ/L (136-145)
[2016-10-21 12:24] LABS: AST (GOT) 41 U/L (15-37); MAGNESIUM 2.1 MG/DL (1.5-2.5); POTASSIUM 4.7 MEQ/L (3.5-5.1)
[2016-10-21 13:19] VITALS: BP 145/79
[2016-10-26] MEDS ORDERED: PIOG45TA3 PO (09:31)
[2016-10-31] MEDS ORDERED: PERC5TAB12 PO (15:19)
[2016-12-01] MEDS ORDERED: PERC5TAB12 PO (12:52)
[2016-12-14] MEDS ORDERED: IBUP800T23 PO (10:12)
== END 2016-10-21 13:20 | disposition home or self-care (01) ==
LOC: NEPE 10:46
DX: R07.89 Other chest pain (principal); R94.31 Abnormal electrocardiogram [ECG] [EKG]; I10 Essential (primary) hypertension; E11.9 Type 2 diabetes mellitus without complications; J44.9 Chronic obstructive pulmonary disease, unspecified; Z86.73 Personal history of transient ischemic attack (TIA), and cerebral infarction without residual deficits
CPT/HCPCS: 71010; 80053; 83690; 83735; 84484; 85025; 93005

== ENCOUNTER 2016-12-04 23:01 | Emergency (ER) | payer MEDICARE, MEDICAID ==
[~2016-12-04] VITALS: Ht 162.6 cm; Wt 90.0 kg
[~2016-12-04 23:01] MED LIST changes: -ACTO30TA10 PO; +PIOG45TA3 PO
[2016-12-04 23:03] VITALS: BP 183/100; PULSE 88; RESP 16; TEMP 97.4; O2SAT 99
[2016-12-05 00:23] VITALS: BP 150/90
[2016-12-05] MEDS ORDERED: NYSTAT/DIPHENHY/LIDO MOUTHWASH (Adult) 120ML SWISH-SWAL ONE (01:45)
[2016-12-05] MEDS ORDERED: KETOROLAC TROMETHAMINE 60 MG/2 ML (IM) VIAL IM ONE (01:45)
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
[2016-12-05] MEDS ORDERED: IBUP800T23 PO (03:06)
[2016-12-05] MEDS ORDERED: MAGICADU2 SWISH-SWAL (03:06)
[2016-12-14] MEDS ORDERED: IBUP800T23 PO (10:12)
== END 2016-12-05 04:38 | disposition home or self-care (01) ==
LOC: NEPD 23:01
DX: S00.512A Abrasion of oral cavity, initial encounter (principal); M25.522 Pain in left elbow; Y04.8XXA Assault by other bodily force, initial encounter
CPT/HCPCS: 96372; 99284; J1885

== ENCOUNTER 2016-12-05 22:19 | Emergency (ER) | payer MEDICARE, MEDICAID ==
[~2016-12-05] VITALS: Ht 162.6 cm; Wt 88.0 kg
[~2016-12-05 22:19] MED LIST changes: +IBUP800T23 PO; +MAGICADU2 SWISH-SWAL
[2016-12-05 22:21] VITALS: BP 154/82; PULSE 85; RESP 16; TEMP 98.2; O2SAT 98
[2016-12-06] MEDS ORDERED: KETOROLAC TROMETHAMINE 60 MG/2 ML (IM) VIAL IM ONE (00:30)
--- NOTE | 2016-12-06 00:37 | RADRPT ---
EXAM DATE/TIME: 12/06/2016 00:26 [facility] COMPARISON: CHEST SINGLE AP, September 25, 2016, 23:37. CHEST SINGLE AP, October 21, 2016, 11:18. INDICATIONS : Chest pain. MEDICAL HISTORY : None. SURGICAL HISTORY : None. ENCOUNTER: Initial ACUITY: 1 day PAIN SCORE: 0/10 LOCATION: Bilateral chest FINDINGS: PA and lateral views of the chest demonstrate the lungs to be symmetrically aerated without evidence of mass, infiltrate or effusion. The cardiomediastinal contours are unremarkable. Osseous structure s are intact. CONCLUSION: The lungs are clear. Ever Cam MD on December 06, 2016 at 0:35 Board Certified Radiologist. This report was verified electronically.
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
[2016-12-14] MEDS ORDERED: IBUP800T23 PO (10:12)
== END 2016-12-06 01:34 | disposition home or self-care (01) ==
LOC: NEPD 22:19
DX: S20.219A Contusion of unspecified front wall of thorax, initial encounter (principal); I10 Essential (primary) hypertension; E11.9 Type 2 diabetes mellitus without complications; F41.9 Anxiety disorder, unspecified; F32.9 Major depressive disorder, single episode, unspecified; N31.9 Neuromuscular dysfunction of bladder, unspecified; Z86.73 Personal history of transient ischemic attack (TIA), and cerebral infarction without residual deficits; Y04.2XXA Assault by strike against or bumped into by another person, initial encounter
CPT/HCPCS: 71020; 96372; 99284; J1885

== ENCOUNTER 2017-02-16 10:25 | Emergency (ER) | payer MEDICARE, MEDICAID ==
[~2017-02-16] VITALS: Ht 162.6 cm; Wt 84.0 kg
[~2017-02-16 10:25] MED LIST changes: -CEFT500T3 PO; -HYDR-3516 PO; -IBUP-232 PO; -PERC5TAB12 PO
[2017-02-16 10:27] VITALS: BP 145/75; PULSE 103; RESP 20; TEMP 98.5; O2SAT 98
[2017-02-16] MEDS ORDERED: GABA300C5 PO (10:43)
[2017-02-16] MEDS ORDERED: SODIUM CHLOR 0.9% 1000 ML INJ 1,000 ML IV ONE (10:45)
[2017-02-16] MEDS ORDERED: KETOROLAC TROMETHAMINE 30 MG/ML (IVP) VIAL IV PUSH ONE (10:45)
[2017-02-16] MEDS ORDERED: HYDROmorphone HCL PF 1 MG/ML VIAL IV PUSH ONE (10:45)
[2017-02-16 10:46] VITALS: BP 129/80; PULSE 103; RESP 18; O2SAT 96
[2017-02-16] MEDS ORDERED: DULO1CAP3 PO (10:46)
[2017-02-16] MEDS ORDERED: ONDA1TAB16 (10:46)
--- NOTE | 2017-02-16 10:56 | PD ---
HPI Chief Complaint: Pain: Acute or Chronic Time Seen by Provider: 10:36 Travel History International Travel<30 days: No Contact w/Intl Traveler<30days: No Traveled to known affect area: No History of Present Illness HPI The patient is a 46-year-old female who presents to the emergency department for left upper extremity pain with numbness and tingling. The patient notes a three-week history of pain that starts over the left shoulder and left trapezius area and radiates into the left arm. The pain is sharp, worse with certain movements, minimally alleviated at rest, and associated with numbness and tingling of the entire left hand. The patient denies any trauma to the left upper extremity and denies any known history of cervical radiculopathy. The patient is left-handed, states she has difficulty gripping objects with a left upper extremity secondary to pain and occasional weakness. She denies any difficulty with speech or numbness/tingling/weakness of the left lower extremity. She also complains of bruising of the anterior aspect the left foot after she accidentally had a fax machine drop on her foot 3 days ago. The pain is worse with weightbearing and alleviated at rest. The patient denies any previous history of TIA/CVA. The patient does have a history of psychiatric disorders and diabetes. PFSH Past Medical History Blood Disorders: No Anxiety: Yes Depression: Yes Cancer: No Cardiovascular Problems: Yes (HTN) Cerebrovascular Accident: Yes Diabetes: Yes Patient Takes Glucophage: No Diminished Hearing: No Endocrine: No Genitourinary: Yes (NEUROGENIC BLADDER- SELF CATHS) Hypertension: Yes Immune Disorder: No Kidney Stones: Yes Musculoskeletal: Yes (CHRONIC BACK PROBS) Neurologic: No Psychiatric: No Reproductive: No Respiratory: Yes Immunizations Current: Yes Renal Failure: No ?: Not : 7 Para: 5 Miscarriage: 2 : 0 Tubal Ligation: Yes Past Surgical History Cardiac Surgery: No Section: Yes Ear Surgery: No Endocrine Surgery: No Eye Surgery: No Gynecologic Surgery: Yes ( X2) Mastectomy: No Oral Surgery: No Thoracic Surgery: No Other Surgery: Yes (suprapubic catheter) Social History Alcohol Use: No Tobacco Use: No Substance Use: No Allergies-Medications (Allergen,Severity, Reaction): Coded Allergies: morphine (Unverified Adverse Reaction, Severe, Itching, 02/16/17) hydromorphone (Verified Adverse Reaction, Intermediate, Itching, 02/16/17) Reported Meds & Prescriptions Reported Meds & Active Scripts Active Ibuprofen 800 Mg Tab 800 Mg PO Q8H PRN Pioglitazone (Pioglitazone HCl) 45 Mg Tab 45 Mg PO DAILY Proair Hfa 8.5 GM Inh (Albuterol Sulfate) 90 Mcg/Act Aer 2 Puff INH Q4HR PRN 108 mcg/actuation Nortriptyline (Nortriptyline HCl) 10 Mg Cap 10 Mg PO DAILY Pravastatin 20 Mg Tab 20 Mg PO DAILY Omeprazole 40 Mg Cap 40 Mg PO DAILY Atrovent HFA 12.9 GM Inh (Ipratropium [place]) 17 Mcg/Act Aer 1 Puff INH QID Lisinopril 10 Mg Tab 10 Mg PO DAILY Reported Duloxetine DR (Duloxetine HCl) 60 Mg Capdr 60 Mg PO DAILY Ondansetron (Ondansetron HCl) 4 Mg Tab Gabapentin 300 Mg Cap 300 Mg PO BID Buspirone (Buspirone HCl) 15 Mg Tab 15 Mg PO DAILY Latuda (Lurasidone) 40 Mg Tab 40 Mg PO DAILY Review of Systems Except as stated in HPI: all other systems reviewed are Neg General / Constitutional: No: Fever Eyes: No: Diploplia, Blurred Vision HENT: No: Headaches, Lightheadedness, Neck Stiffness, Neck Pain Cardiovascular: No: Chest Pain or Discomfort Respiratory: No: Shortness of Breath Gastrointestinal: No: Nausea, Vomiting, Abdominal Pain Musculoskeletal: Positive: Weakness, Pain Neurologic: Positive: Weakness, Paresthesia, Sensory Disturbance Psychiatric: Positive: Mood Disorder Physical Exam Narrative GENERAL: Awake, alert, pleasant 46-year-old female who appears her stated age and is in no acute respiratory distress. SKIN: Focused skin assessment warm/dry. HEAD: Atraumatic. Normocephalic. EYES: Pupils equal and round. No scleral icterus. No injection or drainage. ENT: No nasal bleeding or discharge. Mucous membranes pink and moist. NECK: Trachea midline. No JVD. Tenderness of the left trapezius. No tenderness of the cervical vertebrae or paraspinal muscle. CARDIOVASCULAR: Regular, tachycardic with a heart rate of 105. RESPIRATORY: No accessory muscle use. Clear to auscultation. Breath sounds equal bilaterally. GASTROINTESTINAL: Abdomen soft, non-tender, nondistended. Hepatic and splenic margins not palpable. MUSCULOSKELETAL: No intrinsic hand muscles the left hand are intact. Patient is able flex and extend the wrist, elbow, and abduct the shoulder, against resistance strength is 4+/5 on the left. Positive left radial pulse. Passive range of motion of the shoulder exacerbates pain. NEUROLOGICAL: Awake and alert. No obvious cranial nerve deficits. Motor grossly within normal limits. Normal speech. Sensation is intact over the radial, median, and ulnar distribution of the left hand. PSYCHIATRIC: Appropriate mood and affect; insight and judgment normal. Data Data Last Documented VS Vital Signs Date Time Temp Pulse Resp B/P (MAP) Pulse Ox O2 Delivery O2 Flow Rate FiO2 02/16/17 13:00 81 18 150/86 (107) 98 Room Air 02/16/17 10:[address] Cerv Spine W/O Contrast (02/16/17 ) Ct Brain W/O Iv Contrast(Rout) (02/16/17 ) Foot, Limited (2vws) (02/16/17 ) Sodium Chlor 0.9% 1000 Ml Inj (Ns 1000 M (02/16/17 10:45) Ketorolac Inj (Toradol Inj) (02/16/17 10:45) Hydromorphone Pf Inj (Dilaudid Pf Inj) (02/16/17 10:45) Complete Blood Count With Diff (02/16/17 10:44) Basic Metabolic Panel (Bmp) (02/16/17 10:44) Insulin Aspart Inj (Novolog Inj) (02/16/17 11:45) Diphenhydramine Inj (Benadryl Inj) (02/16/17 12:30) Labs Laboratory Tests Test 02/16/17 10:55 White Blood Count 9.8 TH/MM3 Red Blood Count 4.78 MIL/MM3 Hemoglobin 14.8 GM/DL Hematocrit 43.5 % Mean Corpuscular Volume 90.9 FL Mean Corpuscular Hemoglobin 30.9 PG Mean Corpuscular Hemoglobin Concent 34.0 % Red Cell Distribution Width 13.1 % Platelet Count 265 TH/MM3 Mean Platelet Volume 8.6 FL Neutrophils (%) (Auto) 77.2 % Lymphocytes (%) (Auto) 15.3 % Monocytes (%) (Auto) 6.6 % Eosinophils (%) (Auto) 0.1 % Basophils (%) (Auto) 0.8 % Neutrophils # (Auto) 7.6 TH/MM3 Lymphocytes # (Auto) 1.5 TH/MM3 Monocytes # (Auto) 0.7 TH/MM3 Eosinophils # (Auto) 0.0 TH/MM3 Basophils # (Auto) 0.1 TH/MM3 CBC Comment DIFF FINAL Differential Comment Blood Urea Nitrogen 15 MG/DL Creatinine 0.92 MG/DL Random Glucose 391 MG/DL Calcium Level 9.3 MG/DL Sodium Level 132 MEQ/L Potassium Level 4.1 MEQ/L Chloride Level 100 MEQ/L Carbon Dioxide Level 23.6 MEQ/L Anion Gap 8 MEQ/L Estimat Glomerular Filtration Rate 65 ML/MIN MDM Medical Decision Making Medical Screen Exam Complete: Yes Emergency Medical Condition: Yes Medical Record Reviewed: Yes Interpretation(s) Last Impressions Foot X-Ray 02/16/17 0000 Signed Impressions: Service Date/Time: , February 16, 2017 10:46 - CONCLUSION: Unremarkable study except for calcaneal spur. Greg Painter MD CT the cervical spine reveals no acute fracture or prevertebral soft tissue swelling. Mild to moderate spinal stenosis at C5 6 with moderate left neural foraminal narrowing and mild to moderate right neural foraminal narrowing. Mild spinal stenosis and bilateral foraminal narrowing at C4 5. Cervical spondylosis at C4 5, C5 6, and to lesser extent at C3 4 and C6 7. Reversible of normal cervical lordosis. Scoliosis of the cervical spine. CT of the brain reveals mild periventricular and subcortical areas of decreased attenuation consistent with demyelination or possible small vessel ischemic disease. MRI of the brain with and without contrast may be helpful for further evaluation of clinically indicated. No acute infarct, midline shift, or extra- axial fluid collections. Mild mucosal thickening involving the right maxilla sinus and left sphenoid sinus. Laboratory Tests Test 02/16/17 10:55 White Blood Count 9.8 TH/MM3 Red Blood Count 4.78 MIL/MM3 Hemoglobin 14.8 GM/DL Hematocrit 43.5 % Mean Corpuscular Volume 90.9 FL Mean Corpuscular Hemoglobin 30.9 PG Mean Corpuscular Hemoglobin Concent 34.0 % Red Cell Distribution Width 13.1 % Platelet Count 265 TH/MM3 Mean Platelet Volume 8.6 FL Neutrophils (%) (Auto) 77.2 % Lymphocytes (%) (Auto) 15.3 % Monocytes (%) (Auto) 6.6 % Eosinophils (%) (Auto) 0.1 % Basophils (%) (Auto) 0.8 % Neutrophils # (Auto) 7.6 TH/MM3 Lymphocytes # (Auto) 1.5 TH/MM3 Monocytes # (Auto) 0.7 TH/MM3 Eosinophils # (Auto) 0.0 TH/MM3 Basophils # (Auto) 0.1 TH/MM3 CBC Comment DIFF FINAL Differential Comment Blood Urea Nitrogen 15 MG/DL Creatinine 0.92 MG/DL Random Glucose 391 MG/DL Calcium Level 9.3 MG/DL Sodium Level 132 MEQ/L Potassium Level 4.1 MEQ/L Chloride Level 100 MEQ/L Carbon Dioxide Level 23.6 MEQ/L Anion Gap 8 MEQ/L Estimat Glomerular Filtration Rate 65 ML/MIN Differential Diagnosis Differential diagnosis includes cervical radiculopathy, brachial plexus radiculopathy, neuropathy, CVA, multiple sclerosis, intracranial hemorrhage. Narrative Course IV was established, labs are drawn and sent, and the patient was placed on cardiac telemetry monitoring and continuous pulse oximetry monitoring. CT the brain and cervical spine were ordered. The patient was administered Dilaudid, as she is allergic to morphine, Toradol, Zofran, and IV fluids. X-ray of the left foot was obtained. CT the brain reveals chronic changes, no acute infarct or hemorrhage. CT the cervical spine reveals neural foraminal narrowing but no significant fracture. Labs reveal glucose of 391, therefore, patient was administered 1 L of IV fluids and insulin 8 units subcutaneously. Patient appears to have cervical radiculopathy and may benefit from outpatient physical therapy referral from her primary physician. The patient has diabetes with hyperglycemia, therefore, will not be placed on Medrol Dosepak. She will be placed on ibuprofen, muscle relaxer, and pain medication. The patient had mild itching after the Dilaudid was administered, therefore, was administered Benadryl 25 mg intravenously. She had no shortness of breath or lip/tongue swelling. Repeat Accu-Chek was 296. Patient is stable for outpatient follow- up. Diagnosis Primary Impression: Cervical radiculopathy Additional Impressions: Left arm pain Hyperglycemia Patient Instructions: General Instructions Additional Instructions: Medications as directed. Follow-up with her primary physician. You may benefit from outpatient physical therapy and/or orthopedic/neurosurgical consultation. Return if symptoms worsen or progress. Med/Other Pt SpecificInfo: Prescription(s) given Scripts Hydrocodone-Acetaminophen ([place]) 5-325 mg Tab 1 TAB PO Q6H Y for PAIN, #12 TAB 0 Refills Prov: Juan Ramon Cueva MD 02/16/17 Cyclobenzaprine (Flexeril) 10 Mg Tab 10 MG PO TID for Muscle Spasm, #30 TAB 0 Refills Prov: Juan Ramon Cueva MD 02/16/17 Ibuprofen (Ibuprofen) 600 Mg Tab 600 MG PO Q6H Y for Pain/Inflammation, #20 TAB 0 Refills Prov: Juan Ramon Cueva MD 02/16/17 Disposition: 01 DISCHARGE HOME Condition: Stable Juan Ramon Cueva MD Feb 16, 2017 10:56
[2017-02-16 11:04] LABS: AUTOMATED NEUTROPHIL # 7.6 TH/MM3 (1.8-7.7); BASOPHIL # 0.1 TH/MM3 (0-0.2); BASOPHIL % 0.8 % (0.0-2.0); EOSINOPHIL % 0.1 % (0.0-4.0); HEMATOCRIT 43.5 % (35.0-46.0); HEMO FLAGS DIFF FINAL; LYMPH % 15.3 % (9.0-44.0); LYMPHOCYTE # 1.5 TH/MM3 (1.0-4.8); MEAN CELL VOLUME 90.9 FL (80.0-100.0); MEAN CORPUSCULAR HEMOGLOBIN 30.9 PG (27.0-34.0); MONO % 6.6 % (0.0-8.0); NEUT % 77.2 % (16.0-70.0); PLATELET COUNT 265 TH/MM3 (150-450); RED BLOOD COUNT 4.78 MIL/MM3 (4.00-5.30); RED CELL DISTRIBUTION WIDTH 13.1 % (11.6-17.2); WHITE BLOOD COUNT 9.8 TH/MM3 (4.0-11.0)
--- NOTE | 2017-02-16 11:09 | RADRPT ---
EXAM DATE/TIME: 02/16/2017 10:46 [facility] COMPARISON: No previous studies available for comparison. INDICATIONS : Left distal foot pain, tripped over object MEDICAL HISTORY : None. SURGICAL HISTORY : None. ENCOUNTER: Initial ACUITY: 3 days PAIN SCORE: 4/10 LOCATION: Left Foot FINDINGS: No definite fractures, or dislocations are identified. No definite lytic or sclerotic lesion is seen . Calcaneal spur is present at the attachment site of the plantar aponeurosis. CONCLUSION: Unremarkable study except for calcaneal spur. Greg Painter MD on February 16, 2017 at 11:05 Board Certified Radiologist. This report was verified electronically.
[2017-02-16 11:28] LABS: BICARBONATE 23.6 MEQ/L (21.0-32.0); POTASSIUM 4.1 MEQ/L (3.5-5.1)
--- NOTE | 2017-02-16 11:41 | RADRPT ---
EXAM DATE/TIME: 02/16/2017 11:21 [facility] COMPARISON: No previous studies available for comparison. INDICATIONS : Left shoulder pain, arm pain, and numbness. RADIATION DOSE: 31.47 CTDIvol (mGy) MEDICAL HISTORY : Hypertension. Diabetes mellitus type 2. SURGICAL HISTORY : Tubal ligation. ENCOUNTER: Initial ACUITY: 1 day PAIN SCALE: 0/10 LOCATION: cranial TECHNIQUE: Multiple contiguous axial images were obtained of the head. Using automated exposure control and adj ustment of the mA and/or kV according to patient size, radiation dose was kept as low as reasonably a chievable to obtain optimal diagnostic quality images. DICOM format image data is available electro nically for review and comparison. FINDINGS: Mild periventricular and subcortical white matter areas of decreased attenuation are noted consistent with demyelination or small vessel ischemic disease. MRI of the brain with and without contrast may be helpful for further evaluation of this patient if clinically indicated. No acute hemorrhage is n oted. No acute infarct, midline shift or extraaxial fluid collections are noted. The ventricles, ruvalcaba lci and cisterns are normal in size, shape and position for the patient's age. Mild mucosal thickeni ng is noted involving the right maxillary sinus and left sphenoid sinus. CONCLUSION: 1. Mild periventricular and subcortical areas of decreased attenuation consistent with demyelination or possible small vessel ischemic disease. MRI of the brain with and without contrast may be helpfu l for further evaluation if clinically indicated. 2. No acute infarct, midline shift or extraaxial fluid collections. 3. Mild mucosal thickening involving the right maxillary sinus and left sphenoid sinus. Praveen Gay MD on February 16, 2017 at 11:30 Board Certified Radiologist. This report was verified electronically.
[2017-02-16] MEDS ORDERED: INSULIN ASPART 1,000 UNITS/10 ML VIAL SQ ONE (11:45)
--- NOTE | 2017-02-16 11:46 | RADRPT ---
EXAM DATE/TIME: 02/16/2017 11:21 [facility] COMPARISON: No previous studies available for comparison. INDICATIONS : Left shoulder pain and numbess. RADIATION DOSE: 20.97 CTDIvol (mGy) MEDICAL HISTORY : Hypertension. Diabetes mellitus type 2. SURGICAL HISTORY : Tubal ligation. ENCOUNTER: Initial ACUITY: 1 day PAIN SCALE: 0/10 LOCATION: neck TECHNIQUE: Volumetric scanning of the cervical spine was performed. Multiplanar reconstructions in the sagittal, coronal and oblique axial planes were performed. Using automated exposure control and adjustment o f the mA and/or kV according to patient size, radiation dose was kept as low as reasonably achievable to obtain optimal diagnostic quality images. DICOM format image data is available electronically f or review and comparison. FINDINGS: There is reversal of the normal cervical lordosis. Cervical spondylosis is noted at C4-5, C5-6 and t o a lesser extent at C3-4 and C6-7. There is no acute fracture or prevertebral soft tissue swelling. Mild scoliosis of the cervical spine is noted. Mild to moderate spinal stenosis is noted at C5-6 w ith moderate left neural foraminal narrowing and mild to moderate right neural foraminal narrowing at this level. Mild spinal stenosis and bilateral foraminal narrowing is noted at C4-5 also. CONCLUSION: 1. No acute fracture or prevertebral soft tissue swelling. 2. Mild to moderate spinal stenosis at C5-6 with moderate left neural foraminal narrowing and mild t o moderate right neural foraminal narrowing. 3. Mild spinal stenosis and bilateral foraminal narrowing at C4-5. 4. Cervical spondylosis at C4-5, C5-6 and to a lesser extent at C3-4 and C6-7. 5. Reversal of normal cervical lordosis. 6. Scoliosis of the cervical spine. Praveen Gay MD on February 16, 2017 at 11:36 Board Certified Radiologist. This report was verified electronically.
[2017-02-16] MEDS ORDERED: diphenhydrAMINE HCL 50 MG/ML VIAL IV PUSH ONE (12:30)
[2017-02-16 13:00] VITALS: BP 150/86; PULSE 81; RESP 18; O2SAT 98
[2017-02-16] MEDS ORDERED: NORC5TAB PO (13:08)
[2017-02-16] MEDS ORDERED: CYCL1TAB29 PO (13:08)
[2017-02-16] MEDS ORDERED: IBUP-232 PO (13:08)
[2017-02-16] MEDS ORDERED: VENTAER INH (14:33)
[2017-02-23] MEDS ORDERED: LANTUS2P SQ (12:20)
[2017-02-23] MEDS ORDERED: INSU-92 (12:20)
[2017-03-31] MEDS ORDERED: CYCL1TAB29 PO (11:27)
[2017-03-31] MEDS ORDERED: IBUP800T23 PO (11:27)
== END 2017-02-16 13:48 | disposition home or self-care (01) ==
LOC: NEPE 10:25
DX: M54.12 Radiculopathy, cervical region (principal); M79.602 Pain in left arm; E11.65 Type 2 diabetes mellitus with hyperglycemia
CPT/HCPCS: 70450; 72125; 73620; 80048; 85025; 96361; 96372; 96374; 96375; 99285; J1170; J1200; J1815; J1885; J7030

== ENCOUNTER → 2017-03-01 | Outpatient (CLI) | payer MEDICARE, MEDICAID ==
[~2017-03-01] MED LIST changes: -CIPR250T2 PO; +CYCL1TAB29 PO; +DULO1CAP3 PO; +GABA300C5 PO; +IBUP-232 PO; +INSU-92; +LANTUS2P SQ; -MAGICADU2 SWISH-SWAL; +NORC5TAB PO; +ONDA1TAB16; -ONDA4TAB7 SL; +VENTAER INH
== END ==
LOC: CDED 08:11
PROVIDERS: ATTEND Family Medicine
DX: E11.9 Type 2 diabetes mellitus without complications (principal)
CPT/HCPCS: G0108

== ENCOUNTER 2017-08-23 05:06 | Emergency (ER) | payer MEDICARE, MEDICAID ==
[~2017-08-23] VITALS: Ht 162.6 cm; Wt 90.5 kg
[~2017-08-23 05:06] MED LIST changes: +ALBU0.08 NEB; -ALBUAER3 INH; +CYCL10TA PO; -CYCL1TAB29 PO; -IBUP-232 PO; +IBUP1TAB7 PO; -IBUP800T23 PO; +IPRASOL INH; +MELO7.5T27 PO; +NEBUKIT5; +NEBULIZER/ADULT1 KIT; +NEBULIZER1 MI1; -NORC5TAB PO; -ONDA1TAB16; +ONDA4TAB15 PO; -PIOG45TA3 PO; +PIOG45TA5 PO; +TYLE325T PO
[2017-08-23 05:13] VITALS: BP 177/99; PULSE 101; RESP 20; TEMP 98.1; O2SAT 98
[2017-08-23] MEDS ORDERED: ASPIRIN 325 MG TAB PO ONE (05:45)
[2017-08-23] MEDS ORDERED: NITROGLYCERIN 0.4 MG SL 25 TABS/BTL SL ONE (05:45)
[2017-08-23] MEDS ORDERED: SODIUM CHLORIDE 0.9% FLUSH 10 ML FLUSH IVF PRN (05:45)
[2017-08-23 05:49] VITALS: O2SAT 100
[2017-08-23 05:55] VITALS: BP 146/80; PULSE 97; RESP 18; O2SAT 100
[2017-08-23 06:04] LABS: AUTOMATED NEUTROPHIL # 5.7 TH/MM3 (1.8-7.7); BASOPHIL % 0.5 % (0.0-2.0); EOSINOPHIL # 0.1 TH/MM3 (0-0.4); EOSINOPHIL % 1.6 % (0.0-4.0); HEMATOCRIT 41.9 % (35.0-46.0); HEMOGLOBIN 14.3 GM/DL (11.6-15.3); LYMPH % 7.7 % (9.0-44.0); LYMPHOCYTE # 0.5 TH/MM3 (1.0-4.8); MEAN CELL VOLUME 89.7 FL (80.0-100.0); MEAN CORPUSCULAR HEMOGLOBIN 30.5 PG (27.0-34.0); MEAN PLATELET VOLUME 7.8 FL (7.0-11.0); MONO % 7.1 % (0.0-8.0); MONOCYTE # 0.5 TH/MM3 (0-0.9); NEUT % 83.1 % (16.0-70.0); PLATELET COUNT 236 TH/MM3 (150-450); RED BLOOD COUNT 4.68 MIL/MM3 (4.00-5.30); RED CELL DISTRIBUTION WIDTH 13.4 % (11.6-17.2); WHITE BLOOD COUNT 6.8 TH/MM3 (4.0-11.0)
--- NOTE | 2017-08-23 06:06 | RADRPT ---
EXAM DATE/TIME: 08/23/2017 05:58 [facility] COMPARISON: CHEST SINGLE AP, October 21, 2016, 11:18. INDICATIONS : Shortness of breath. MEDICAL HISTORY : Hypertension. Diabetes mellitus type 2. SURGICAL HISTORY : Tubal ligation. ENCOUNTER: Initial ACUITY: 1 day PAIN SCORE: 0/10 LOCATION: Bilateral chest FINDINGS: A single view of the chest demonstrates the lungs to be symmetrically aerated without evidence of mas s, infiltrate or effusion. The cardiomediastinal contours are unremarkable. Osseous structures are intact. CONCLUSION: No acute disease. Ever Holland Jr., MD on August 23, 2017 at 6:04 Board Certified Radiologist. This report was verified electronically.
--- NOTE | 2017-08-23 06:14 | PD ---
HPI Chief Complaint: Chest Pain Time Seen by Provider: 05:28 Travel History International Travel<30 days: No Contact w/Intl Traveler<30days: No Traveled to known affect area: No History of Present Illness HPI The patient's 47 years old and complains of chest pain in her right arm pain. She reports cough and congestion. She reports the chest pain started about 3 or 4 hours ago while she was sleeping. No pleuritic component. Patient reports a history of diabetes hypertension and noncompliance with medication for the past few days. She has had no fever. She states she will need something for pain. PFSH Past Medical History Blood Disorders: No Anxiety: Yes Depression: Yes Cancer: No Cardiovascular Problems: Yes (HTN) Cerebrovascular Accident: Yes Diabetes: Yes Patient Takes Glucophage: Yes Diminished Hearing: No Endocrine: No Genitourinary: Yes (NEUROGENIC BLADDER- SELF CATHS) Hypertension: Yes Immune Disorder: No Kidney Stones: Yes Musculoskeletal: Yes (CHRONIC BACK PROBS) Neurologic: No Psychiatric: No Reproductive: No Respiratory: Yes Immunizations Current: Yes Renal Failure: No ?: Not : 7 Para: 5 Miscarriage: 2 : 0 Tubal Ligation: Yes Past Surgical History Cardiac Surgery: No Section: Yes Ear Surgery: No Endocrine Surgery: No Eye Surgery: No Gynecologic Surgery: Yes ( X2) Mastectomy: No Oral Surgery: No Thoracic Surgery: No Other Surgery: Yes (suprapubic catheter) Social History Alcohol Use: No Tobacco Use: No Substance Use: No Allergies-Medications (Allergen,Severity, Reaction): Coded Allergies: morphine (Unverified Adverse Reaction, Severe, Itching, 08/23/17) hydromorphone (Verified Adverse Reaction, Intermediate, Itching, 08/23/17) Reported Meds & Prescriptions Reported Meds & Active Scripts Active Ventolin Hfa 18 GM Inh (Albuterol Sulfate) 90 Mcg/Act Aer 2 Puff INH Q4H PRN Ibuprofen 800 Mg Tab 800 Mg PO Q8H PRN Ondansetron (Ondansetron HCl) 4 Mg Tab 4 Mg PO Q6HR PRN Nebulizer/Adult Mask (N/A) 1 Kit Kit Kit .ROUTE DIRECTED Tylenol (Acetaminophen) 325 Mg Tab 650 Mg PO Q6H PRN Flexeril (Cyclobenzaprine HCl) 10 Mg Tab 10 Mg PO TID Meloxicam 7.5 Mg Tab 7.5 Mg PO DAILY Pioglitazone (Pioglitazone HCl) 45 Mg Tab 45 Mg PO DAILY Pravastatin 20 Mg Tab 20 Mg PO DAILY Lisinopril 10 Mg Tab 10 Mg PO DAILY Nebulizer 1 Mis Mis Ea .ROUTE DIRECTED Use with albuterol as needed for shortness of breath Nebulizer Kit/Tubing/Mout (N/A) 1 Kit Kit Kit .ROUTE DIRECTED Lantus Inj (Insulin Glargine) 1,000 Unit/10 Ml Vial 10 Units SQ HS Omeprazole 40 Mg Cap 40 Mg PO DAILY Duoneb (Ipratropium-Albuterol Neb) 0.5-2.5 Mg/3 Ml Neb 1 Nebule INH Q4HR NEB Albuterol Neb (Albuterol Sulfate) 2.5 Mg/3 Ml Neb 2.5 Mg NEB Q4HR NEB PRN Carefine Pen [place] 30Gx 30G X 8 mm (Insulin Pen Needle/Carefine 30Gx 30G X 8 mm) 30 Gauge X 5/16" Mis Box .ROUTE DIRECTED Nortriptyline (Nortriptyline HCl) 10 Mg Cap 10 Mg PO DAILY Atrovent HFA 12.9 GM Inh (Ipratropium [place]) 17 Mcg/Act Aer 1 Puff INH QID Reported Duloxetine DR (Duloxetine HCl) 60 Mg Capdr 60 Mg PO DAILY Gabapentin 300 Mg Cap 300 Mg PO BID Buspirone (Buspirone HCl) 15 Mg Tab 15 Mg PO DAILY Latuda (Lurasidone) 40 Mg Tab 40 Mg PO DAILY Review of Systems Except as stated in HPI: all other systems reviewed are Neg General / Constitutional: No: Fever Physical Exam Narrative GENERAL: 47-year-old female well-nourished well-developed Vital Signs Date Time Temp Pulse Resp B/P (MAP) Pulse Ox O2 Delivery O2 Flow Rate FiO2 08/23/17 05:55 97 18 146/80 (102) 100 08/23/17 05:49 Non-Rebreather 13.00 08/23/17 05:49 100 Non-Rebreather 13.00 08/23/17 05:13 98.1 101 20 177/99 (125) 98 Room Air SKIN: Warm and dry. HEAD: Atraumatic. Normocephalic. EYES: Pupils equal and round. No scleral icterus. No injection or drainage. ENT: No nasal bleeding or discharge. Mucous membranes pink and moist. NECK: Trachea midline. No JVD. CARDIOVASCULAR: Regular rate and rhythm. RESPIRATORY: No accessory muscle use. Clear to auscultation. Breath sounds equal bilaterally. GASTROINTESTINAL: Abdomen soft, non-tender, nondistended. Hepatic and splenic margins not palpable. MUSCULOSKELETAL: Extremities without clubbing, cyanosis, or edema. No obvious deformities. NEUROLOGICAL: Awake and alert. No obvious cranial nerve deficits. Motor grossly within normal limits. Five out of 5 muscle strength in the arms and legs. Normal speech. PSYCHIATRIC: Appropriate mood and affect; insight and judgment normal. Data Data Last Documented VS Vital Signs Date Time Temp Pulse Resp B/P (MAP) Pulse Ox O2 Delivery O2 Flow Rate FiO2 08/23/17 05:55 97 18 146/80 (102) 100 08/23/17 05:49 Non-Rebreather 13.00 08/23/17 05:13 98.1 Orders Orders Electrocardiogram (08/23/17 05:40) Basic Metabolic Panel (Bmp) (08/23/17 05:40) Ckmb (Isoenzyme) Profile (08/23/17 05:40) Complete Blood Count With Diff (08/23/17 05:40) Magnesium (Mg) (08/23/17 05:40) Troponin I (08/23/17 05:40) Chest, Single Ap (08/23/17 05:40) Ecg Monitoring (08/23/17 05:40) Iv Access Insert/Monitor (08/23/17 05:40) Oximetry (08/23/17 05:40) Oxygen Administration (08/23/17 05:40) Aspirin (Aspirin) (08/23/17 05:45) Sodium Chloride 0.9% Flush (Ns Flush) (08/23/17 05:45) Nitroglycerin Sl (Nitrostat Sl) (08/23/17 05:45) Ondansetron Odt (Zofran Odt) (08/23/17 06:30) Labs Laboratory Tests Test 08/23/17 05:50 White Blood Count 6.8 TH/MM3 Red Blood Count 4.68 MIL/MM3 Hemoglobin 14.3 GM/DL Hematocrit 41.9 % Mean Corpuscular Volume 89.7 FL Mean Corpuscular Hemoglobin 30.5 PG Mean Corpuscular Hemoglobin Concent 34.0 % Red Cell Distribution Width 13.4 % Platelet Count 236 TH/MM3 Mean Platelet Volume 7.8 FL Neutrophils (%) (Auto) 83.1 % Lymphocytes (%) (Auto) 7.7 % Monocytes (%) (Auto) 7.1 % Eosinophils (%) (Auto) 1.6 % Basophils (%) (Auto) 0.5 % Neutrophils # (Auto) 5.7 TH/MM3 Lymphocytes # (Auto) 0.5 TH/MM3 Monocytes # (Auto) 0.5 TH/MM3 Eosinophils # (Auto) 0.1 TH/MM3 Basophils # (Auto) 0.0 TH/MM3 CBC Comment DIFF FINAL Differential Comment Blood Urea Nitrogen 8 MG/DL Creatinine 0.65 MG/DL Random Glucose 197 MG/DL Calcium Level 8.4 MG/DL Magnesium Level 1.7 MG/DL Sodium Level 137 MEQ/L Potassium Level 3.7 MEQ/L Chloride Level 104 MEQ/L Carbon Dioxide Level 26.1 MEQ/L Anion Gap 7 MEQ/L Estimat Glomerular Filtration Rate 97 ML/MIN Total Creatine Kinase 44 U/L Troponin I LESS THAN 0.02 NG/ML [facility] Medical Decision Making Medical Screen Exam Complete: Yes Emergency Medical Condition: Yes Medical Record Reviewed: Yes Differential Diagnosis NSTEMI, unstable angina, coronary vasospasm, PE, PTX, aortic dissection, pericarditis, myocarditis, endocarditis, PNA, esophageal disease, aneurysm, musculoskeletal etiologies, anxiety, cocaine/sympathomimetic abuse Narrative Course EKG shows sinus rhythm with a rate of 99 normal axis intervals no ischemic injury pattern Chest x-ray shows no acute disease Patient has nuclear medicine perfusion scan from less than 2 years prior which is normal. Diagnosis Primary Impression: Atypical chest pain Referrals: Primary Care Physician 2 days Med/Other Pt SpecificInfo: Prescription(s) given Scripts Albuterol 18 GM Inh (Ventolin Hfa 18 GM Inh) 90 Mcg/Act Aer 2 PUFF INH Q4H Y for SHORTNESS OF BREATH, #1 INHALER 5 Refills Prov: Frankie Watt MD 08/23/17 Ibuprofen (Ibuprofen) 800 Mg Tab 800 MG PO Q8H Y for PAIN GREATER THAN 5, #90 TAB 0 Refills Prov: Frankie Watt MD 08/23/17 Albuterol Neb (Albuterol Neb) 2.5 Mg/3 Ml Neb 2.5 MG NEB Q4HR NEB Y for SHORTNESS OF BREATH, #60 NEBULE 11 Refills Prov: Frankie Watt MD 08/23/17 Disposition: 01 DISCHARGE HOME Condition: Stable Frankie Watt MD Aug 23, 2017 06:14
[2017-08-23] MEDS ORDERED: ONDANSETRON ODT 4 MG TAB PO ONE (06:30)
[2017-08-23 06:32] LABS: BICARBONATE 26.1 MEQ/L (21.0-32.0); BLOOD UREA NITROGEN 8 MG/DL (7-18); CALCIUM 8.4 MG/DL (8.5-10.1); CHLORIDE 104 MEQ/L (98-107); CREATININE 0.65 MG/DL (0.50-1.00); GLOMERULAR FILTRATION RATE 97 ML/MIN (>89); GLUCOSE,RANDOM 197 MG/DL (74-106); MAGNESIUM 1.7 MG/DL (1.5-2.5); SODIUM (NA) 137 MEQ/L (136-145)
[2017-08-23 06:36] LABS: TROPONIN I LESS THAN 0.02 NG/ML (0.02-0.05)
[2017-08-23] MEDS ORDERED: VENTAER INH (07:00)
[2017-08-23] MEDS ORDERED: IBUP1TAB7 PO (07:00)
[2017-08-23] MEDS ORDERED: ALBU0.08 NEB (07:00)
[2017-08-23 07:33] VITALS: BP 142/79
--- NOTE | 2017-08-23 23:04 | EKG ---
Date Performed: 08/23/2017 Time Performed: 05:46:17 PTAGE: 47 years EKG: Sinus rhythm LOW QRS VOLTAGE IN PRECORDIAL LEADS BORDERLINE ECG NO PREVIOUS TRACING DOCTOR: Antonio Telles Interpretating Date/Time 08/23/2017 23:04:03
== END 2017-08-23 07:38 | disposition home or self-care (01) ==
LOC: NEPC 05:06
DX: R07.89 Other chest pain (principal); I10 Essential (primary) hypertension; E11.9 Type 2 diabetes mellitus without complications; R94.31 Abnormal electrocardiogram [ECG] [EKG]; F32.9 Major depressive disorder, single episode, unspecified; F41.9 Anxiety disorder, unspecified; Z91.14 Patient's other noncompliance with medication regimen; Z86.73 Personal history of transient ischemic attack (TIA), and cerebral infarction without residual deficits; Z87.442 Personal history of urinary calculi; Z88.5 Allergy status to narcotic agent; Z79.4 Long term (current) use of insulin; Z79.899 Other long term (current) drug therapy
CPT/HCPCS: 71045; 80048; 82550; 83735; 84484; 85025; 93005; 99285

== ENCOUNTER → 2017-09-20 | Outpatient (CLI) | payer MEDICARE, MEDICAID ==
[2017-09-20 09:26] LABS: AUTOMATED NEUTROPHIL # 3.7 TH/MM3 (1.8-7.7); BASOPHIL % 0.5 % (0.0-2.0); EOSINOPHIL # 0.1 TH/MM3 (0-0.4); EOSINOPHIL % 2.6 % (0.0-4.0); HEMOGLOBIN 14.5 GM/DL (11.6-15.3); LYMPH % 26.6 % (9.0-44.0); LYMPHOCYTE # 1.6 TH/MM3 (1.0-4.8); MEAN CELL VOLUME 89.6 FL (80.0-100.0); MEAN CORPUSCULAR HEMOGLOBIN 30.2 PG (27.0-34.0); MEAN CORPUSCULAR HGB CONC 33.7 % (32.0-36.0); MEAN PLATELET VOLUME 8.8 FL (7.0-11.0); MONO % 7.3 % (0.0-8.0); MONOCYTE # 0.4 TH/MM3 (0-0.9); PLATELET COUNT 233 TH/MM3 (150-450); RED CELL DISTRIBUTION WIDTH 13.5 % (11.6-17.2); WHITE BLOOD COUNT 5.8 TH/MM3 (4.0-11.0)
[2017-09-20 09:29] LABS: BACTERIA, URINE MOD /hpf; BILIRUBIN, URINE NEG (NEG); BLOOD, URINE NEG (NEG); GLUCOSE,URINE 1000 mg/dL (NEG); KETONE, URINE 10 mg/dL (NEG); NITRITE,URINE NEG (NEG); PH, URINE 5.5 (5.0-8.5); SQUAMOUS EPITHELIAL CELL URINE 1 /hpf (0-5); URINE COLOR LIGHT-YELLOW (YELLW/STRAW); URINE LEUKOCYTE ESTERASE NEG (NEG)
[2017-09-20 09:49] LABS: ALBUMIN 4.3 GM/DL (3.4-5.0); AST (GOT) 46 U/L (15-37); BICARBONATE 28.8 MEQ/L (21.0-32.0); BLOOD UREA NITROGEN 12 MG/DL (7-18); CALCIUM 8.7 MG/DL (8.5-10.1); CHLORIDE 100 MEQ/L (98-107); CREATININE 0.66 MG/DL (0.50-1.00); GLOMERULAR FILTRATION RATE 96 ML/MIN (>89); GLUCOSE,FASTING 180 MG/DL (74-99); SODIUM (NA) 136 MEQ/L (136-145)
[2017-09-20 09:51] LABS: ALT (GPT) 64 U/L (10-53)
[2017-09-20 09:54] LABS: ALKALINE PHOSPHATASE 75 U/L (45-117); TOTAL BILIRUBIN ADULT 0.4 MG/DL (0.2-1.0)
[2017-09-20 17:30] LABS: HEMOGLOBIN A1C 8.2 % (4.3-6.0)
--- NOTE | 2017-09-20 20:59 | EKG ---
Date Performed: 09/20/2017 Time Performed: 08:44:22 PTAGE: 47 years EKG: Sinus rhythm NORMAL ECG PREVIOUS TRACING : 08/23/2017 05.46 Since the previous tracing, no significant change noted DOCTOR: Antonio Telles Interpretating Date/Time 09/20/2017 20:57:40
== END ==
LOC: CPRE 08:16
PROVIDERS: ATTEND Neurological Surgery
DX: Z01.812 Encounter for preprocedural laboratory examination (principal); Z01.810 Encounter for preprocedural cardiovascular examination; E11.65 Type 2 diabetes mellitus with hyperglycemia; M50.10 Cervical disc disorder with radiculopathy, unspecified cervical region; N39.0 Urinary tract infection, site not specified; B96.20 Unspecified Escherichia coli [E. coli] as the cause of diseases classified elsewhere; Z16.11 Resistance to penicillins; Z16.19 Resistance to other specified beta lactam antibiotics
CPT/HCPCS: 36415; 80053; 81001; 83036; 85025; 85610; 85730; 87077; 87086; 87186; 87640; 87641; 93005

== ENCOUNTER 2017-10-18 05:59 | Observation (INO) | payer MEDICARE, MEDICAID ==
[~2017-10-18] VITALS: Ht 162.6 cm; Wt 91.2 kg
[~2017-10-18 05:59] MED LIST changes: -GABA300C5 PO; -IBUP1TAB7 PO; -TYLE325T PO
[2017-10-18] MEDS ORDERED: VANCOMYCIN 1 GM/200 ML PREMIX ON-CALL IV SCH (06:45)
[2017-10-18] MEDS ORDERED: SODIUM CHLOR 0.9% 1000 ML INJ 1,000 ML IV SCH (06:45)
[2017-10-18] MEDS ORDERED: PROPOFOL 500 MG/50 ML INJ 100 ML ONE (06:50)
[2017-10-18] MEDS ORDERED: ARTIFICIAL TEARS OPTH OINT 3.5 APPLIC/3.5 GM TUBO ONE (06:50)
[2017-10-18] MEDS ORDERED: POVIDONE IODINE 5% (ANTISEPSIS KIT) 4 APPLICATIONS EACH NARE PRN (07:00)
[2017-10-18] MEDS ORDERED: CHLORHEXIDINE GLUCONATE 2 % 1 PACK (2 CLOTHS) TOPICAL PRN (07:00)
[2017-10-18] MEDS ORDERED: CHLORHEXIDINE GLUCONATE 2 % 1 PACK (2 CLOTHS) TOPICAL SCH (07:00)
[2017-10-18] MEDS ORDERED: INSULIN HUMAN REGULAR 1,000 UNITS/10 ML VIAL SQ PRN (07:00)
[2017-10-18] MEDS ORDERED: SODIUM CHLORID 0.9% 500 ML IV PRN (07:00)
[2017-10-18] MEDS ORDERED: LACTATED RINGER'S 1000 ML IV PRN (07:00)
[2017-10-18] MEDS ORDERED: METOPROLOL TARTRATE 25 MG TAB PO PRN (07:00)
[2017-10-18] MEDS ORDERED: PROPOFOL 500 MG/50 ML INJ 200 ML ONE (07:33)
[2017-10-18] MEDS ORDERED: ACETAMINOPHEN 1000 MG/100 ML 100 ML IV ONE (07:34)
[2017-10-18 07:54] LABS: BACTERIA, URINE RARE /hpf; BILIRUBIN, URINE NEG (NEG); BLOOD, URINE NEG (NEG); GLUCOSE,URINE 1000 mg/dL (NEG); KETONE, URINE NEG (NEG); MUCUS URINE FEW /lpf (OCC); NITRITE,URINE NEG (NEG); SQUAMOUS EPITHELIAL CELL URINE 2 /hpf (0-5); URINE COLOR YELLOW (YELLW/STRAW); URINE LEUKOCYTE ESTERASE NEG (NEG)
[2017-10-18] MEDS ORDERED: THROMBIN (TOPICAL) 5,000 UNIT VIAL ONE (08:28)
[2017-10-18] MEDS ORDERED: GENTAMICIN SULFATE 80 MG/2 ML VIAL ONE ×2 (08:29→08:34)
[2017-10-18] MEDS ORDERED: ceFAZolin INJ 1,000 MG VIAL ONE (08:30)
[2017-10-18] MEDS ORDERED: MICROFIBRILLAR COLLAGEN HEMOSTAT 70 X 35 MM BANDAGE ONE (08:30)
[2017-10-18] MEDS ORDERED: GELATIN POWDER 1 GM PACKET ONE (08:31)
[2017-10-18] MEDS ORDERED: DEXAMETHASONE SOD PHOS 20 MG/5 ML VIAL ONE (08:31)
[2017-10-18] MEDS ORDERED: GELFOAM SIZE 100 ONE (08:32)
[2017-10-18] MEDS ORDERED: ceFAZolin 2 GM PREMIX 50 ML ONE (08:34)
[2017-10-18] MEDS ORDERED: DEXAMETHASONE SOD PHOS 4 MG/ML VIAL IV ONE (12:00)
[2017-10-18] MEDS ORDERED: ROCURONIUM INJ 50 MG/5 ML SYRINGE IV PUSH ONE (12:00)
[2017-10-18] MEDS ORDERED: PHENYLEPH/NS 1000 MCG/10 ML SYR IV ONE (12:00)
[2017-10-18] MEDS ORDERED: LACTATED RINGER'S 1000 ML INJ 1,000 ML IV ONE (12:00)
[2017-10-18] MEDS ORDERED: ONDANSETRON HCL 4 MG/2 ML VIAL IV PUSH ONE (12:00)
[2017-10-18] MEDS ORDERED: LIDOCAINE HCL 1% PF 5 ML SYRINGE OTHER ONE (12:00)
[2017-10-18] MEDS ORDERED: PROPOFOL 200 MG/20 ML AMP IV ONE (12:00)
[2017-10-18] MEDS ORDERED: PHENYLEPHRINE HCL 10 MG/ML VIAL IV ONE (12:00)
[2017-10-18] MEDS ORDERED: MIDAZOLAM HCL 2 MG/2 ML VIAL ONE (13:02)
--- NOTE | 2017-10-18 13:08 | RADRPT ---
EXAM DATE/TIME: 10/18/2017 09:52 [facility] COMPARISON: No previous studies available for comparison. INDICATIONS : C4-C5 and C5-C6 anterior cervical fusion. Level localization. MEDICAL HISTORY : None. SURGICAL HISTORY : None. ENCOUNTER: Initial ACUITY: 1 day PAIN SCORE: Non-responsive. LOCATION: neck FINDINGS: A single lateral view of the cervical spine was performed. Radiopaque marker projecting at superior endplate of C5. The vertebral body heights are intact. Degenerative spondylosis is noted in the lower cervical spine. Patient is intubated. CONCLUSION: 1. Radiopaque marker projecting at the superior endplate of C5. Ernesto Bearden MD on October 18, 2017 at 13:02 Board Certified Radiologist. This report was verified electronically.
--- NOTE | 2017-10-18 13:09 | RADRPT ---
EXAM DATE/TIME: 10/18/2017 09:52 [facility] COMPARISON: No previous studies available for comparison. INDICATIONS : Post-op C4-C5 and C5-C6 anterior cervical fusion. MEDICAL HISTORY : None. SURGICAL HISTORY : None. ENCOUNTER: Initial ACUITY: 1 day PAIN SCORE: Non-responsive. LOCATION: neck FINDINGS: 3 fluoroscopic images of the cervical spine demonstrate intradiscal with anterior plate and screw fix ation at C4-6. Hardware appears well-positioned and intact. Sagittal alignment is maintained. Vertebr al body heights appear intact. CONCLUSION: 1. C4-6 anterior fixation, as above. Ernesto Bearden MD on October 18, 2017 at 13:05 Board Certified Radiologist. This report was verified electronically.
[2017-10-18] MEDS ORDERED: *MEPERIDINE 25 MG INJ VIAL PERIprocedural Use ONLY ONE (13:13)
[2017-10-18] MEDS ORDERED: ACETAMINOPHEN 325 MG TAB PO PRN (13:45)
[2017-10-18] MEDS ORDERED: GLUCAGON 1 MG/ML VIAL OTHER PRN ×2 (13:45)
[2017-10-18] MEDS ORDERED: cloNIDine HCL 0.1 MG TAB PO/NG PRN (13:45)
[2017-10-18] MEDS ORDERED: MENTHOL LOZENGE BUCCAL PRN (13:45)
[2017-10-18] MEDS ORDERED: ALBUTEROL SULFATE 90 MCG/ACT HFA 8 GM INHALER INH PRN (13:45)
[2017-10-18] MEDS ORDERED: RESP: ALBUTEROL 2.5 MG/3 ML NEB (PRN) NEB (13:45)
[2017-10-18] MEDS ORDERED: ACETAMINOPHEN/HYDROcodone 325 MG/10 MG TAB PO PRN (13:45)
[2017-10-18] MEDS ORDERED: MAGNESIUM HYDROXIDE SUSP 30 ML CUP PO PRN (13:45)
[2017-10-18] MEDS ORDERED: MORPHINE SULFATE 4 MG/ML INJ IV PUSH PRN ×2 (13:45)
[2017-10-18] MEDS ORDERED: DEXTROSE 50% IN WATER 50 ML VIAL(D50) IV PUSH PRN (13:45)
[2017-10-18] MEDS ORDERED: BISACODYL 10 MG SUPP RECTAL PRN (13:45)
[2017-10-18] MEDS ORDERED: RESP: ALBUTEROL 2.5 MG/3 ML NEB (PRN) INH (13:45)
[2017-10-18] MEDS ORDERED: DO NOT ADM ANY ANTICOAGULANT DRUGS PRN (14:00)
[2017-10-18] MEDS ORDERED: ONDANSETRON ODT 4 MG TAB PO PRN (14:30)
[2017-10-18] MEDS: SODIUM CHLOR 0.9% 1000 ML INJ 1,000 ML IV SCH ×2 (14:34→23:32)
[2017-10-18 15:39] VITALS: BP 141/94; PULSE 105; RESP 20; TEMP 97.9; O2SAT 96
[2017-10-18] MEDS: ceFAZolin 2 GM PREMIX 50 ML IV SCH (17:13)
[2017-10-18] MEDS: DEXAMETHASONE SOD PHOS 4 MG/ML VIAL IV PUSH SCH ×2 (17:13→20:57)
--- NOTE | 2017-10-18 17:42 | PD.OP ---
Operative Report Date of Surgery: October 18, 2017 Preoperative Diagnosis: Cervical degenerative disk disease and stenosis Postoperative Diagnosis: Cervical degenerative disk disease and stenosis Procedure: C4-5, C5-6 anterior cervical discectomy, interbody arthodhesis using PEEK cage filled with autologous bone graft, Simplicity plate and screws. Anesthesia: General endotracheal Surgeon: Bennett Greenberg Reliability Technologist(s): Chichi Banegas Operation and Findings: INDICATIONS FOR THE PROCEDURE Ms Beckford is a 47 year-old female who presented with intractable neck pain and clinical evidence of C5 and C6 upper extremity radiculopathy. She was found to have significant spndylosis with stenosis. She has failed maximum nonsurgical management including multiple modalities of conservative treatment as well as pain management interventions by an interventional pain specialist. A surgical decompression and arthrodhesis were indicated. The [id number] details of the procedure, indications, alternatives, risks and potential complications were fully discussed with the patient. The patient fully understood. All The questions were answered. No guarantees were given. The patient voiced requesting the procedure and provided informed consents. The patient was offered the alternative of delaying the procedure and continuing with nonsurgical management. DETAILS OF THE SURGICAL PROCEDURE After the induction of general anesthesia, endotracheal intubation was performed. A Choe catheter, bilateral ROMERO hose, and sequential compression devices were placed and kept throughout the procedure. Placement of electrodes for neurophysiological monitoring of the somatosensorial evoked potentials. motor evoked potentials, and EMG as well as laryngeal nerve monitoring was achieved. The patient was positioned supine on a Jaden table with the head over a gel doughnut. All pressure points were carefully padded with eggcrate mattress. The eyes were tapped shut after ointment was applied by the anesthesiologist to prevent corneal abrasion. A Jermain hugger was placed over the exposed lower body to maintain control of the core body temperature. The electrophysiological team placed the needles and electrodes in their proper location and baseline SSEP's and motor evoked potentials were registered prior and after positioning and endotracheal intubation. The anterior cervical region was prepped and draped in the usual sterile fashion. A localizing x-ray was performed with a C-arm. The surgical procedure was performed in several steps as follow: SURGICAL APPROACH A skin incision was made along the medial cervical crease with a #10 blade. The dissection was carried out through the platysma exposing the sternocleidomastoid muscle. The cervical spine was approached following the fascial layers of the neck just medial to the anterior border of the sternocleidomastoid and carotid sheath by a combination of sharp and dull dissection. The omohyoid muscle was identified and carefully dissected laterally and the deep cervical fascia was carefully opened. The longus colli muscles were retracted to each side of the midline. A marker was placed at the disc space C5-6 and a cross-table lateral x-ray performed with a C-arm. SURGICAL DECOMPRESSION In order to decompress the anterior surface of the spinal cord it was necessary to preform a microsurgical resection of the disk at C4-5 and C5-6. At this point in the procedure the operating microscope was draped in the usual sterile fashion and brought to the field. The rest of the surgical procedure was performed using microdissection technique with the exception of the closure. Under the operative microscopic, a self-retaining retractor was placed underneath the longus colli muscle. Anterior osteophite spurs werte carefully removed with the [place]. The annulus at C4-5 and C5-6 were incised with a #15 blade and microdiscectomy was then carefully carried out using angled curets and pituitary forceps. There were osteophitic/disk complexes mass effect and compression of the dural sac and nerve roots. The posterior longitudinal ligament was then elevated with an angled curet and incised with a 15 bladed knife. A careful resection of the posterior longitudinal ligament was carried out using a thin footplate 2 mm Kerrison. A nerve hook was used to assess the epidural space behing the vertebral bodies C5 and C6 in search for residual disk fragments. The margins of the posterior endplates at C4-5 and C5-6 were carefully drilled and undercut with a TPS drill under high magnification. The decompression was then carried out laterally, and a bilateral foraminotomy was performed with a 2mm thin foot Kerrison. Then the vertebral bodies above and below the disk space were undercut using a 2 mm thin foot Kerrison. The epidural space was the systematically assessed with a nerve hook in search for disk fragments or scar tissue. An excellent decompression was achieved in both , the dural sac and bilateral exiting nerve roots. The incision was then irrigated with a large amount of antibiotic solution INTERBODY ARTHRODHESIS In order to avoid collapse of the disk space which would result in bilateral foraminal stenosis, and to increase the chances of a successful fusion, it was necessary to place an interbody cage filled with autologous bone. At this point of the procedure, the superior and inferior endplates were then evenly decorticated with a TPS drill. The use of a drill in combination with a curette allowed me to systematically remove the cartilaginous endplates, exposing healthy bone for the interbody arthrodesis. Fourteen millimeters distraction pins were then placed at the vertebral bodies adjacent to the disk space, and gentle distraction was applied. The size of the interbody cage was then assessed using different size spacers, and a rasp was used to ensure no residual cartilage. A PEEK cage of the appropriate size was selected, and the interbody arthrodesis was then preformed by carefully impacting a PEEK cage filled with autologous bone graft to the disc spaces C4-5 and C5-6. An excellent position of the cage was achieved. This was was confirmed anatomically by feeling the space posterior to the implant and distance to the anterior surface of the dural sac. Radiological confirmation of the position was performed with a cross lateral xray performed with the C-arm. INTERNAL INSTRUMENTAL FIXATION Once that the interbody device was in an appropriate position, it was necessary to stabilize the spine with anterior instrumentation. Anterior instrumentation has demonstrated to increase the rate of fusion, accelerate the patient's recovery, and decrease the rate of failed interbody grafts. At this point of the procedure, the distance between the vertebral bodies was carefully measures, and a Simplicity plate was brought to the field and presented in front of the vertebral bodies C4 C5 and C6. End Stapler holes were then drilled using the TPS drill, and the plate was then secured to the spine using self-drilling, self-tapping screws. Initially, the inferior right screw was inserted, followed by placement of the contralateral upper screw. The remanding screws were sequentially placed in a contra-lateral fashion. A proper purchase was achieved with all screws and the position of the cage, plate and screws, and alignment of the spine was assessed anatomically by direct visualization, and radiologically by performing a cross lateral xray of the cervical spine with the C-arm. CLOSURE The incision was irrigated with several liters of antibiotic solution. Hemostasis was achieved with a bipolar. The screws were locked to prevent backing out. A 7 mm Jaden-Lr drain was left in the prevertebral space and externalized through a separate stab incision. The incision was then closed in layers. 3-0 Vicryl with interrupted sutures was used to close the platysma and subcutaneous tissue. The skin was closed with 4-0 running subcuticular Vicryl and glue was applied to the skin. The drain was secured with a 3-0 nylon. At the end of the procedure the sponge, needle and instrument counts were all correct. The estimated blood loss was less than 80-100 cc. No blood transfusion was given. No intraoperative complications occurred. The patient received prophylactic antibiotics. The patient was then extubated and transferred to the recovery room in stable condition. Bennett Greenberg MD October 18, 2017 17:42
[2017-10-18] MEDS ORDERED: CYCLOBENZAPRINE HCL 10 MG TAB PO SCH (18:00)
[2017-10-18] MEDS ORDERED: IPRATROPIUM BROMIDE 17 MCG/ACT 12.9 GM INHALER INH SCH (18:00)
[2017-10-18] MEDS ORDERED: HYDROmorphone HCL PF 2 MG/ML VIAL IV PUSH PRN (18:15)
[2017-10-18] MEDS: RESP: ALBUTEROL 2.5 MG/IPRATROPIUM 0.5 MG NEB (SCH) INH (19:58)
[2017-10-18 20:00] VITALS: BP 127/77; PULSE 105; RESP 18; TEMP 98.2; O2SAT 95
[2017-10-18 20:02] VITALS: O2SAT 98
[2017-10-18] MEDS: DOCUSATE SODIUM 100 MG CAP PO SCH (20:57)
[2017-10-18] MEDS: INSULIN DETEMIR 100 UNITS/ML VIAL SQ SCH (20:58)
[2017-10-18] MEDS: CHLORHEXIDINE GLUCONATE 4% SOLN 120 ML BTL TOP SCH (20:58)
[2017-10-18] MEDS: ACETAMINOPHEN/HYDROcodone 325 MG/10 MG TAB PO PRN (21:00)
[2017-10-19] VITALS (9 sets, daily range): BP systolic 103–129; BP diastolic 57–79; PULSE 95–114; RESP 18–20; TEMP 97.8–98.5; O2SAT 93–97
[2017-10-19] MEDS: RESP: ALBUTEROL 2.5 MG/IPRATROPIUM 0.5 MG NEB (SCH) INH ×5 (00:05→20:00)
[2017-10-19] MEDS: ceFAZolin 2 GM PREMIX 50 ML IV SCH ×2 (01:45→09:48)
[2017-10-19] MEDS: ACETAMINOPHEN/HYDROcodone 325 MG/10 MG TAB PO PRN ×3 (01:46→10:11)
[2017-10-19] MEDS: DEXAMETHASONE SOD PHOS 4 MG/ML VIAL IV PUSH SCH ×4 (01:46→20:29)
[2017-10-19] MEDS ORDERED: DULoxetine HCl DR 60 MG CAP PO SCH (09:00)
[2017-10-19] MEDS: PANTOPRAZOLE SODIUM 40 MG VIAL IVP SCH (09:00)
[2017-10-19] MEDS: TIOTROPIUM BROMIDE 18 MCG INH INH SCH (09:00)
[2017-10-19] MEDS ORDERED: NON-FORMULARY DRUG (Omeprazole 40 MG) PO SCH (09:00)
[2017-10-19] MEDS: NORTRIPTYLINE HCL 10 MG CAP PO SCH (09:46)
[2017-10-19] MEDS: PIOGLITAZONE HCL 45 MG TAB PO SCH (09:46)
[2017-10-19] MEDS: PANTOPRAZOLE SOD 40 MG DELAYED RELEASE TAB PO SCH (09:46)
[2017-10-19] MEDS: LISINOPRIL 10 MG TAB PO SCH (09:47)
[2017-10-19] MEDS: busPIRone HCL 5 MG TAB PO SCH (09:47)
[2017-10-19] MEDS: LURASIDONE 40 MG TAB PO SCH (09:47)
[2017-10-19] MEDS: DOCUSATE SODIUM 100 MG CAP PO SCH ×2 (09:47→20:30)
[2017-10-19] MEDS: PRAVASTATIN SOD 20 MG TAB PO SCH (09:47)
[2017-10-19] MEDS: SODIUM CHLOR 0.9% 1000 ML INJ 1,000 ML IV SCH ×2 (09:57→17:03)
[2017-10-19] MEDS ORDERED: HYDROmorphone HCL PF 2 MG/ML VIAL IV PUSH PRN (11:00)
[2017-10-19] MEDS: GABAPENTIN 300 MG CAP PO SCH ×2 (12:09→17:02)
[2017-10-19] MEDS: KETOROLAC TROMETHAMINE 30 MG/ML (IVP) VIAL IV PUSH SCH ×2 (12:10→17:02)
[2017-10-19] MEDS: ONDANSETRON HCL 4 MG/2 ML VIAL IV PRN (12:10)
[2017-10-19] MEDS ORDERED: GLUCAGON 1 MG/ML VIAL OTHER PRN (13:30)
[2017-10-19] MEDS ORDERED: DEXTROSE 50% IN WATER 50 ML VIAL(D50) IV PUSH PRN (13:30)
--- NOTE | 2017-10-19 15:04 | HHI.NSPN ---
(Lisa Ojeda) Note Status Status: Progress Note (Lisa Ojeda) Interval History Interval History 47 y/o female s/p C4-5, C5-6 anterior cervical discectomy, interbody arthodhesis using PEEK cage filled with autologous bone graft, Simplicity plate and screws. 10/19: c/o severe cervical pain, current pain regimen not enough. asking to stay in hospital one more day. (Lisa Ojeda) Labs, Micro, & Vital Signs Results Date Time Temp Pulse Resp B/P (MAP) Pulse Ox O2 Delivery O2 Flow Rate FiO2 10/19/17 12:07 97.9 101 18 120/66 (84) 97 10/19/17 09:34 96 21 10/19/17 08:00 98.1 103 18 129/75 (93) 96 10/19/17 07:11 98.4 100 20 112/57 (75) 93 10/19/17 03:16 97 10/19/17 00:07 96 10/19/17 00:00 98.5 114 18 127/79 (95) 96 10/18/17 20:02 98 10/18/17 20:00 98.2 105 18 127/77 (94) 95 10/18/17 15:39 97.9 105 20 141/94 (110) 96 10/20/17 06:59 Intake Total 50 ml Output Total 70 ml Balance -20 ml Constitutional Vital Signs Date Time Temp Pulse Resp B/P (MAP) Pulse Ox O2 Delivery O2 Flow Rate FiO2 10/19/17 12:07 97.9 101 18 120/66 (84) 97 10/19/17 09:34 96 21 10/19/17 08:00 98.1 103 18 129/75 (93) 96 10/19/17 07:11 98.4 100 20 112/57 (75) 93 10/19/17 03:16 97 10/19/17 00:07 96 10/19/17 00:00 98.5 114 18 127/79 (95) 96 10/18/17 20:02 98 10/18/17 20:00 98.2 105 18 127/77 (94) 95 10/18/17 15:39 97.9 105 20 141/94 (110) 96 10/20/17 06:59 Intake Total 50 ml Output Total 70 ml Balance -20 ml (Lisa Ojeda) Physical Exam Wound with Optifoam dressing. COSMO drain in place. Neck: immobilized by [place] collar Musculoskeletal: stable 4/5 deltoid, biceps, triceps and process planner bilaterally. In the lower extremities, strength is 5/5. (Lisa Ojeda) Medications Current Medications Current Medications Medications (Trade) Dose Ordered Sig/Sarah Beth Route PRN Reason Start Time Stop Time Status Last Admin Dose Admin Vancomycin/Sodium Chloride 200 ml @ 200 mls/hr MEDIA RELATIONS ASSOCIATE IV 10/18/17 06:45 10/21/17 06:44 10/18/17 08:33 Chlorhexidine Gluconate (Chlorhexidine 2% Cloth) 1 pack Q3D TOPICAL 10/18/17 07:00 10/24/17 07:01 Metoprolol Tartrate (Lopressor) 25 mg MEDIA RELATIONS ASSOCIATE PRN PO SEE LABEL COMMENTS 10/18/17 07:00 10/21/17 06:59 Povidone Iodine (Betadine 5% Antisepsis Kit) 1 applic MEDIA RELATIONS ASSOCIATE PRN EACH NARE SEE LABEL COMMENTS 10/18/17 07:00 10/21/17 06:59 Chlorhexidine Gluconate (Chlorhexidine 2% Cloth) 3 pack MEDIA RELATIONS ASSOCIATE PRN TOPICAL SEE LABEL COMMENTS 10/18/17 07:00 10/21/17 06:59 Insulin Human Regular (NovoLIN R INJ) See Protocol Table ... MEDIA RELATIONS ASSOCIATE PRN SQ SEE PROTOCOL TABLE 10/18/17 07:00 10/21/17 06:59 Sodium Chloride 1,000 ml @ 100 mls/hr Q10H IV 10/18/17 13:34 10/19/17 09:57 Bisacodyl (Dulcolax Supp) 10 mg DAILY PRN RECTAL CONSTIPATION 10/18/17 13:45 Docusate Sodium (Colace) 100 mg BID PO 10/18/17 21:00 10/19/17 09:47 Magnesium Hydroxide (Milk Of Magnesia Liq) 30 ml DAILY PRN PO Mild-moderate constipation 10/18/17 13:45 Pantoprazole Sodium (Protonix) 40 mg DAILY PO 10/19/17 09:00 10/19/17 09:46 Pantoprazole Sodium (Protonix Inj) 40 mg DAILY IVP 10/19/17 09:00 Ondansetron HCl (Zofran Inj) 4 mg Q6H PRN IV NAUSEA OR VOMITING 10/18/17 13:45 10/19/17 12:10 Acetaminophen/ Hydrocodone Bitart ([place] 10-325 Mg) 1 tab Q4H PRN PO PAIN SCALE 1 TO 5 10/18/17 13:45 Acetaminophen/ Hydrocodone Bitart ([place] 10-325 Mg) 2 tab Q4H PRN PO PAIN SCALE 6 TO 10 10/18/17 13:45 10/19/17 10:11 Cyclobenzaprine HCl (Flexeril) 10 mg Q8H PRN PO MUSCLE SPASM 10/18/17 13:45 Dexamethasone Sodium Phosphate (Decadron Inj) 4 mg Q6H IV PUSH 10/18/17 15:00 10/19/17 14:43 Clonidine (Catapres) 0.1 mg Q6H PRN PO/NG SYS BP GREATER THAN 170 MMHG 10/18/17 13:45 Acetaminophen (Tylenol) 650 mg Q4H PRN PO TEMPERATURE > 101.5 F 10/18/17 13:45 Menthol ([place] Joel) 1 lozenge UNSCH PRN BUCCAL SORE THROAT 10/18/17 13:45 Albuterol Sulfate (Albuterol Neb) 2.5 mg Q4HR NEB PRN INH WHEEZING 10/18/17 13:45 Chlorhexidine Gluconate (Hibiclens 4% Top Soln) 1 applic HS TOP 10/18/17 21:00 10/20/17 21:01 Albuterol Sulfate (Proair Hfa Inh) 2 puff Q4H PRN INH SHORTNESS OF BREATH 10/18/17 13:45 Buspirone HCl (Buspar) 15 mg DAILY PO 10/19/17 09:00 10/19/17 09:47 Insulin Detemir (Levemir Inj) 10 units HS SQ 10/18/17 21:00 10/18/17 20:58 Albuterol/ Ipratropium (Duoneb Neb) 2 ampule Q4HR NEB INH 10/18/17 16:00 10/19/17 08:00 Lisinopril (Prinivil) 10 mg DAILY PO 10/19/17 09:00 10/19/17 09:47 Lurasidone HCl (Latuda) 40 mg DAILY PO 10/19/17 09:00 10/19/17 09:47 Nortriptyline HCl (Pamelor) 10 mg DAILY PO 10/19/17 09:00 10/19/17 09:46 Pioglitazone HCl (Actos) 45 mg DAILY PO 10/19/17 09:00 10/19/17 09:46 Pravastatin Sodium (Pravachol) 20 mg DAILY PO 10/19/17 09:00 10/19/17 09:47 Ondansetron HCl (Zofran Odt) 4 mg Q6H PRN PO NAUSEA OR VOMITING 10/18/17 14:30 Dextrose (D50w (Vial) Inj) 50 ml UNSCH PRN IV PUSH HYPOGLYCEMIA-SEE COMMENTS 10/18/17 13:45 Glucagon (Glucagon Inj) 1 mg UNSCH PRN OTHER HYPOGLYCEMIA-SEE COMMENTS 10/18/17 13:45 Tiotropium [place] (Spiriva Inh) 18 mcg DAILY INH 10/19/17 09:00 10/19/17 09:00 Hydromorphone HCl (Dilaudid Pf Inj) 1 mg Q2HR PRN IV PUSH SEE LABEL COMMENTS 10/19/17 11:00 Ketorolac Tromethamine (Toradol Inj) 30 mg Q6HR IV PUSH 10/19/17 12:00 10/24/17 11:59 10/19/17 12:10 Gabapentin (Neurontin) 300 mg TID PO 10/19/17 13:00 10/19/17 12:09 Dextrose (D50w (Vial) Inj) 50 ml UNSCH PRN IV PUSH HYPOGLYCEMIA-SEE COMMENTS 10/19/17 13:30 Glucagon (Glucagon Inj) 1 mg UNSCH PRN OTHER HYPOGLYCEMIA-SEE COMMENTS 10/19/17 13:30 (Lisa Ojeda) Medical Decision Making MDM Remarks 47 y/o female s/p C4-5, C5-6 anterior cervical discectomy, interbody arthrodesis using PEEK cage filled with autologous bone graft, Simplicity plate and screws, POD 1 intractable cervical pain, uncontrolled pain (Lisa Ojeda) Plan Plan Remarks increase Dilauded 2 mg q 2 hour for pain 6-10 if cannot take po cont hydrocodone prn start Neurontin 300 mg tid, and Toradol injections, maintain [place] collar dc COSMO drain PT eval, mobilize OOB (Lisa Ojeda) Attending Statement The exam, history, and the medical decision-making described in the above note were completed with the assistance of the mid-level provider. I reviewed and agree with the findings presented. I attest that I had a [id number] encounter with the patient on the same day, and personally performed and documented my assessment and findings in the medical record. (Bennett Greenberg MD) Lisa Ojeda October 19, 2017 15:04 Bennett Greenberg MD October 21, 2017 13:36
[2017-10-19] MEDS: CYCLOBENZAPRINE HCL 10 MG TAB PO PRN (20:30)
[2017-10-19] MEDS: INSULIN DETEMIR 100 UNITS/ML VIAL SQ SCH (20:32)
[2017-10-19] MEDS: CHLORHEXIDINE GLUCONATE 4% SOLN 120 ML BTL TOP SCH (21:00)
[2017-10-20] VITALS: BP 122/69; PULSE 111; RESP 18; TEMP 98; O2SAT 95
[2017-10-20] MEDS: RESP: ALBUTEROL 2.5 MG/IPRATROPIUM 0.5 MG NEB (SCH) INH ×5 (00:07→20:00)
[2017-10-20] MEDS: KETOROLAC TROMETHAMINE 30 MG/ML (IVP) VIAL IV PUSH SCH ×5 (01:01→23:03)
[2017-10-20] MEDS: ACETAMINOPHEN/HYDROcodone 325 MG/10 MG TAB PO PRN ×3 (01:07→18:17)
[2017-10-20] MEDS: DEXAMETHASONE SOD PHOS 4 MG/ML VIAL IV PUSH SCH ×2 (03:03→08:28)
[2017-10-20 05:01] VITALS: BP 121/65; PULSE 100; RESP 18; TEMP 98; O2SAT 95
[2017-10-20] MEDS: CYCLOBENZAPRINE HCL 10 MG TAB PO PRN (05:03)
[2017-10-20] MEDS: SODIUM CHLOR 0.9% 1000 ML INJ 1,000 ML IV SCH ×2 (05:04→13:27)
[2017-10-20 08:00] VITALS: BP 127/76; PULSE 94; RESP 18; TEMP 97.3; O2SAT 95
[2017-10-20] MEDS: PANTOPRAZOLE SODIUM 40 MG VIAL IVP SCH (08:10)
[2017-10-20] MEDS: LISINOPRIL 10 MG TAB PO SCH (08:27)
[2017-10-20] MEDS: ONDANSETRON HCL 4 MG/2 ML VIAL IV PRN (08:27)
[2017-10-20] MEDS: GABAPENTIN 300 MG CAP PO SCH ×3 (08:27→17:24)
[2017-10-20] MEDS: PRAVASTATIN SOD 20 MG TAB PO SCH (08:27)
[2017-10-20] MEDS: PANTOPRAZOLE SOD 40 MG DELAYED RELEASE TAB PO SCH (08:27)
[2017-10-20] MEDS: PIOGLITAZONE HCL 45 MG TAB PO SCH (08:27)
[2017-10-20] MEDS: NORTRIPTYLINE HCL 10 MG CAP PO SCH (08:28)
[2017-10-20] MEDS: busPIRone HCL 5 MG TAB PO SCH (08:28)
[2017-10-20] MEDS: DOCUSATE SODIUM 100 MG CAP PO SCH ×2 (08:28→21:09)
[2017-10-20] MEDS: LURASIDONE 40 MG TAB PO SCH (08:28)
[2017-10-20] MEDS: TIOTROPIUM BROMIDE 18 MCG INH INH SCH (08:28)
[2017-10-20] MEDS ORDERED: GLUCAGON 1 MG/ML VIAL OTHER PRN (09:30)
[2017-10-20] MEDS ORDERED: DEXTROSE 50% IN WATER 50 ML VIAL(D50) IV PUSH PRN (09:30)
--- NOTE | 2017-10-20 10:52 | HHI.NSPN ---
(Lisa Ojeda) Note Status Status: Progress Note (Lisa Ojeda) Interval History Interval History 47 y/o female s/p C4-5, C5-6 anterior cervical discectomy, interbody arthodhesis using PEEK cage filled with autologous bone graft, Simplicity plate and screws. 10/19: c/o severe cervical pain, current pain regimen not enough. asking to stay in hospital one more day. 10/20: Glucose remains elevated in the high 200s, placed on insulin sliding scale. pt reports still painful and not ready for discharge. (Lisa Ojeda) Labs, Micro, & Vital Signs Results Date Time Temp Pulse Resp B/P (MAP) Pulse Ox O2 Delivery O2 Flow Rate FiO2 10/20/17 08:00 97.3 94 18 127/76 (93) 95 10/20/17 05:01 98.0 100 18 121/65 (83) 95 10/20/17 00:00 98.0 111 18 122/69 (86) 95 10/19/17 20:00 97.8 97 18 109/57 (74) 96 10/19/17 16:16 97.9 95 18 103/58 (73) 94 10/19/17 12:07 97.9 101 18 120/66 (84) 97 Constitutional Vital Signs Date Time Temp Pulse Resp B/P (MAP) Pulse Ox O2 Delivery O2 Flow Rate FiO2 10/20/17 08:00 97.3 94 18 127/76 (93) 95 10/20/17 05:01 98.0 100 18 121/65 (83) 95 10/20/17 00:00 98.0 111 18 122/69 (86) 95 10/19/17 20:00 97.8 97 18 109/57 (74) 96 10/19/17 16:16 97.9 95 18 103/58 (73) 94 10/19/17 12:07 97.9 101 18 120/66 (84) 97 (Lisa Ojeda) Review of Systems Constitutional: DENIES: Fever, Chills Musculoskeletal: COMPLAINS OF: Neck pain Neurologic: COMPLAINS OF: Abnormal gait, Poor Balance (Lisa Ojeda) Physical Exam Optifoam dressing clean and dry Neck: immobilized by [place] collar Musculoskeletal: stable 4/5 deltoid, biceps, triceps and ship manager bilaterally. In the lower extremities, strength is 5/5. Neuro: Alert and oriented. Cranial nerves pupils equal. Facial motor symmetric. (Lisa Ojeda) Medications Current Medications Current Medications Medications (Trade) Dose Ordered Sig/Sarah Beth Route PRN Reason Start Time Stop Time Status Last Admin Dose Admin Vancomycin/Sodium Chloride 200 ml @ 200 mls/hr SOFTWARE BUSINESS ANALYST IV 10/18/17 06:45 10/21/17 06:44 10/18/17 08:33 Chlorhexidine Gluconate (Chlorhexidine 2% Cloth) 1 pack Q3D TOPICAL 10/18/17 07:00 10/24/17 07:01 Metoprolol Tartrate (Lopressor) 25 mg SOFTWARE BUSINESS ANALYST PRN PO SEE LABEL COMMENTS 10/18/17 07:00 10/21/17 06:59 Povidone Iodine (Betadine 5% Antisepsis Kit) 1 applic SOFTWARE BUSINESS ANALYST PRN EACH NARE SEE LABEL COMMENTS 10/18/17 07:00 10/21/17 06:59 Chlorhexidine Gluconate (Chlorhexidine 2% Cloth) 3 pack SOFTWARE BUSINESS ANALYST PRN TOPICAL SEE LABEL COMMENTS 10/18/17 07:00 10/21/17 06:59 Insulin Human Regular (NovoLIN R INJ) See Protocol Table ... SOFTWARE BUSINESS ANALYST PRN SQ SEE PROTOCOL TABLE 10/18/17 07:00 10/21/17 06:59 Sodium Chloride 1,000 ml @ 100 mls/hr Q10H IV 10/18/17 13:34 10/20/17 05:04 Bisacodyl (Dulcolax Supp) 10 mg DAILY PRN RECTAL CONSTIPATION 10/18/17 13:45 Docusate Sodium (Colace) 100 mg BID PO 10/18/17 21:00 10/19/17 20:30 Magnesium Hydroxide (Milk Of Magnesia Liq) 30 ml DAILY PRN PO Mild-moderate constipation 10/18/17 13:45 Pantoprazole Sodium (Protonix) 40 mg DAILY PO 10/19/17 09:00 10/20/17 08:27 Pantoprazole Sodium (Protonix Inj) 40 mg DAILY IVP 10/19/17 09:00 Ondansetron HCl (Zofran Inj) 4 mg Q6H PRN IV NAUSEA OR VOMITING 10/18/17 13:45 10/20/17 08:27 Acetaminophen/ Hydrocodone Bitart ([place] 10-325 Mg) 1 tab Q4H PRN PO PAIN SCALE 1 TO 5 10/18/17 13:45 10/19/17 20:30 Acetaminophen/ Hydrocodone Bitart ([place] 10-325 Mg) 2 tab Q4H PRN PO PAIN SCALE 6 TO 10 10/18/17 13:45 10/20/17 05:03 Cyclobenzaprine HCl (Flexeril) 10 mg Q8H PRN PO MUSCLE SPASM 10/18/17 13:45 10/20/17 05:03 Clonidine (Catapres) 0.1 mg Q6H PRN PO/NG SYS BP GREATER THAN 170 MMHG 10/18/17 13:45 Acetaminophen (Tylenol) 650 mg Q4H PRN PO TEMPERATURE > 101.5 F 10/18/17 13:45 Menthol ([place] Joel) 1 lozenge UNSCH PRN BUCCAL SORE THROAT 10/18/17 13:45 Albuterol Sulfate (Albuterol Neb) 2.5 mg Q4HR NEB PRN INH WHEEZING 10/18/17 13:45 Chlorhexidine Gluconate (Hibiclens 4% Top Soln) 1 applic HS TOP 10/18/17 21:00 10/20/17 21:01 Albuterol Sulfate (Proair Hfa Inh) 2 puff Q4H PRN INH SHORTNESS OF BREATH 10/18/17 13:45 Buspirone HCl (Buspar) 15 mg DAILY PO 10/19/17 09:00 10/20/17 08:28 Insulin Detemir (Levemir Inj) 10 units HS SQ 10/18/17 21:00 10/19/17 20:32 Albuterol/ Ipratropium (Duoneb Neb) 2 ampule Q4HR NEB INH 10/18/17 16:00 10/20/17 00:07 Lisinopril (Prinivil) 10 mg DAILY PO 10/19/17 09:00 10/20/17 08:27 Lurasidone HCl (Latuda) 40 mg DAILY PO 10/19/17 09:00 10/20/17 08:28 Nortriptyline HCl (Pamelor) 10 mg DAILY PO 10/19/17 09:00 10/20/17 08:28 Pioglitazone HCl (Actos) 45 mg DAILY PO 10/19/17 09:00 10/20/17 08:27 Pravastatin Sodium (Pravachol) 20 mg DAILY PO 10/19/17 09:00 10/20/17 08:27 Ondansetron HCl (Zofran Odt) 4 mg Q6H PRN PO NAUSEA OR VOMITING 10/18/17 14:30 Tiotropium [place] (Spiriva Inh) 18 mcg DAILY INH 10/19/17 09:00 10/19/17 09:00 Hydromorphone HCl (Dilaudid Pf Inj) 1 mg Q2HR PRN IV PUSH SEE LABEL COMMENTS 10/19/17 11:00 Ketorolac Tromethamine (Toradol Inj) 30 mg Q6HR IV PUSH 10/19/17 12:00 10/24/17 11:59 10/20/17 05:03 Gabapentin (Neurontin) 300 mg TID PO 10/19/17 13:00 10/20/17 08:27 Dextrose (D50w (Vial) Inj) 50 ml UNSCH PRN IV PUSH HYPOGLYCEMIA-SEE COMMENTS 10/19/17 13:30 Glucagon (Glucagon Inj) 1 mg UNSCH PRN OTHER HYPOGLYCEMIA-SEE COMMENTS 10/19/17 13:30 Dextrose (D50w (Vial) Inj) 50 ml UNSCH PRN IV PUSH HYPOGLYCEMIA-SEE COMMENTS 10/20/17 09:30 Glucagon (Glucagon Inj) 1 mg UNSCH PRN OTHER HYPOGLYCEMIA-SEE COMMENTS 10/20/17 09:30 Insulin Aspart (NovoLOG SUPPLEMENTAL SCALE) 1 ACHS SLIDING SCALE SQ 10/20/17 12:00 (Lisa Ojeda) Medical Decision Making MDM Remarks 47 y/o female s/p C4-5, C5-6 anterior cervical discectomy, interbody arthrodesis using PEEK cage filled with autologous bone graft, Simplicity plate and screws, POD 2 intractable cervical pain, uncontrolled pain Uncontrolled diabetes (Lisa Ojeda) Plan Plan Remarks continue current pain regimen, will discontinue Decadron due to hyperglycemia Continue insulin sliding scale, follow-up glucose levels, discharge once sugar is better controlled Discussed with patient to follow-up with PCP for diabetes management Neurontin 300 mg tid, and Toradol injections, maintain [place] collar PT, mobilize OOB UA cx pos ESBL, sensitivity noted - start on Macrobid 100 mg bid (Lisa Ojeda) Attending Statement The exam, history, and the medical decision-making described in the above note were completed with the assistance of the mid-level provider. I reviewed and agree with the findings presented. I attest that I had a [id number] encounter with the patient on the same day, and personally performed and documented my assessment and findings in the medical record. (Bennett Greenberg MD) Lisa Ojeda October 20, 2017 10:52 Bennett Greenberg MD October 21, 2017 13:38
[2017-10-20 12:00] VITALS: BP 113/63; PULSE 89; RESP 18; TEMP 98.4; O2SAT 95
[2017-10-20 13:08] LABS: HEMATOCRIT 35.8 % (35.0-46.0); HEMOGLOBIN 11.9 GM/DL (11.6-15.3); MEAN CELL VOLUME 90.3 FL (80.0-100.0); MEAN CORPUSCULAR HEMOGLOBIN 29.9 PG (27.0-34.0); MEAN CORPUSCULAR HGB CONC 33.2 % (32.0-36.0); MEAN PLATELET VOLUME 8.7 FL (7.0-11.0); PLATELET COUNT 249 TH/MM3 (150-450); RED BLOOD COUNT 3.96 MIL/MM3 (4.00-5.30); RED CELL DISTRIBUTION WIDTH 13.7 % (11.6-17.2); WHITE BLOOD COUNT 10.6 TH/MM3 (4.0-11.0)
[2017-10-20] MEDS: INSULIN ASPART SUPPLEMENTAL SCALE SQ SCH ×3 (13:26→21:17)
[2017-10-20 13:30] LABS: ALBUMIN 3.8 GM/DL (3.4-5.0); AST (GOT) 13 U/L (15-37); BICARBONATE 26.9 MEQ/L (21.0-32.0); BLOOD UREA NITROGEN 15 MG/DL (7-18); CALCIUM 8.5 MG/DL (8.5-10.1); CHLORIDE 101 MEQ/L (98-107); CREATININE 0.79 MG/DL (0.50-1.00); GLOMERULAR FILTRATION RATE 78 ML/MIN (>89); GLUCOSE,RANDOM 297 MG/DL (74-106); SODIUM (NA) 136 MEQ/L (136-145)
[2017-10-20 13:31] LABS: ALT (GPT) 35 U/L (10-53)
[2017-10-20 13:34] LABS: ALKALINE PHOSPHATASE 74 U/L (45-117); TOTAL BILIRUBIN ADULT 0.3 MG/DL (0.2-1.0); TOTAL PROTEIN 6.8 GM/DL (6.4-8.2)
[2017-10-20] MEDS ORDERED: WALKER WHEELS/F1 MIS (14:51)
[2017-10-20] MEDS ORDERED: ADJUSTABLE COMM1 MIS (14:51)
[2017-10-20 16:00] VITALS: BP 137/67; PULSE 113; RESP 18; TEMP 97.6; O2SAT 97
[2017-10-20] MEDS: NITROFURANTOIN MONOHYD MACROCR 100 MG CAP PO SCH (17:25)
[2017-10-20] MEDS: CHLORHEXIDINE GLUCONATE 4% SOLN 120 ML BTL TOP SCH (21:00)
[2017-10-20] MEDS: INSULIN DETEMIR 100 UNITS/ML VIAL SQ SCH (21:16)
[2017-10-21] MEDS: SODIUM CHLOR 0.9% 1000 ML INJ 1,000 ML IV SCH ×2 (01:34→11:35)
[2017-10-21] MEDS: RESP: ALBUTEROL 2.5 MG/IPRATROPIUM 0.5 MG NEB (SCH) INH ×4 (04:00→12:00)
[2017-10-21] MEDS: KETOROLAC TROMETHAMINE 30 MG/ML (IVP) VIAL IV PUSH SCH ×2 (06:21→13:20)
[2017-10-21 08:51] VITALS: BP 134/78; PULSE 99; RESP 18; TEMP 97.5; O2SAT 98
[2017-10-21] MEDS: PANTOPRAZOLE SOD 40 MG DELAYED RELEASE TAB PO SCH (08:58)
[2017-10-21] MEDS: GABAPENTIN 300 MG CAP PO SCH ×2 (08:58→13:20)
[2017-10-21] MEDS: PRAVASTATIN SOD 20 MG TAB PO SCH (08:58)
[2017-10-21] MEDS: NITROFURANTOIN MONOHYD MACROCR 100 MG CAP PO SCH (08:58)
[2017-10-21] MEDS: PIOGLITAZONE HCL 45 MG TAB PO SCH (08:58)
[2017-10-21] MEDS: DOCUSATE SODIUM 100 MG CAP PO SCH (08:58)
[2017-10-21] MEDS: PANTOPRAZOLE SODIUM 40 MG VIAL IVP SCH (08:58)
[2017-10-21] MEDS: LISINOPRIL 10 MG TAB PO SCH (08:58)
[2017-10-21] MEDS: busPIRone HCL 5 MG TAB PO SCH (08:58)
[2017-10-21] MEDS: INSULIN ASPART SUPPLEMENTAL SCALE SQ SCH ×2 (08:58→13:21)
[2017-10-21] MEDS: LURASIDONE 40 MG TAB PO SCH (08:58)
[2017-10-21] MEDS: NORTRIPTYLINE HCL 10 MG CAP PO SCH (08:58)
[2017-10-21] MEDS: ACETAMINOPHEN/HYDROcodone 325 MG/10 MG TAB PO PRN (08:59)
[2017-10-21] MEDS: TIOTROPIUM BROMIDE 18 MCG INH INH SCH (09:10)
[2017-10-21 09:17] VITALS: O2SAT 97
[2017-10-21] MEDS ORDERED: HYDR-3516 PO (11:11)
--- NOTE | 2017-10-21 12:12 | HHI.DCPOC ---
Discharge Care Plan Diagnosis: (1) Status post cervical arthrodesis (2) Diabetes mellitus type 2 in obese Goals to Promote Your Health * To prevent worsening of your condition and complications * To maintain your health at the optimal level Directions to Meet Your Goals Take your medications as prescribed Follow your dietary instruction Follow activity as directed Keep your appointments as scheduled Take your immunizations and boosters as scheduled If your symptoms worsen call your PCP, if no PCP go to Urgent Care Center or Emergency Room Smoking is Dangerous to Your Health. Avoid second hand smoke Call the 24-hour hour crisis hotline for domestic abuse at Lisa Ojeda October 21, 2017 12:12
--- NOTE | 2017-10-21 12:12 | HHI.DS ---
Discharge Summary Admission Date October 18, 2017 at 13:38 Discharge Date: October 21, 2017 Admitting Diagnosis s/p ACDF (1) Status post cervical arthrodesis ICD Code: Z98.1 - Arthrodesis status (2) Diabetes mellitus type 2 in obese ICD Code: E11.9 - Type 2 diabetes mellitus without complications; E66.9 - Obesity, unspecified Status: Chronic Brief History Ms Beckford is a 47 year-old female who presented with intractable neck pain and clinical evidence of C5 and C6 upper extremity radiculopathy. She was found to have significant spondylosis with stenosis. She has failed maximum nonsurgical management including multiple modalities of conservative treatment as well as pain management interventions by an interventional pain specialist. A surgical decompression and arthrodesis were indicated. CBC/BMP: 10/20/17 1239 10/20/17 1239 Significant Findings Laboratory Tests Test 10/20/17 12:39 Red Blood Count 3.96 MIL/MM3 (4.00-5.30) Random Glucose 297 MG/DL (74-106) Aspartate Amino Transf (AST/SGOT) 13 U/L (15-37) Estimat Glomerular Filtration Rate 78 ML/MIN (>89) Imaging Last Impressions Cervical Spine X-Ray 10/18/17 0000 Signed Impressions: Service Date/Time: Wednesday, October 18, 2017 09:52 - CONCLUSION: 1. Radiopaque marker projecting at the superior endplate of C5. Ernesto Bearden MD Hospital Course Ms. Beckford underwent C4-5, C5-6 anterior cervical discectomy, interbody arthodhesis using PEEK cage filled with autologous bone graft, Simplicity plate and screws on October 18, 2017 for cervical degenerative disk disease and stenosis. Her surgery went well without complications. She was kept in hospital due to uncontrolled postoperative pain and uncontrolled Diabetes. Her pain was stabilized and her blood glucose levels improved. She was discharged with home health care in stable conditions. Pt Condition on Discharge: Stable Discharge Disposition: Disch w/ Home Health Serv Discharge Instructions DIET: Follow Instructions for: Heart Healthy Diet ADDITIONAL Diet Instructions: soft, advace as tolerated ACTIVITIES You can perform: Weight Bearing As Guillermo ADDITIONAL Activity Instructio: Avoid strenuous activities, heavy lifting over 5 lbs, overhead activities, repetitive bending, twisting, pushing, pulling or any activities which might result in stress over the spine. Avoid situation that will put at risk for falls. Use assistive device as needed for walking. Wear cervical collar at all times, may remove only with meals. Follow up Referrals: PCP Follow-up New Medications: Adjustable Commode 3-in-1 (Adjustable Commode 3-in-1) 1 Mis Mis EA .XX DIRECTED, #1 Hydrocodone/Acetaminophen (Hydrocodone-Acetamin 5-325 mg) 5 Mg-325 Mg Tablet 1 TAB-CAP PO Q8HR PRN for PAIN SCALE 1 TO 10, #30 TAB 0 Refills Walker with Front Wheels (Walker with Front Wheels) 1 Mis Mis EA .XX DIRECTED, #1 0 Refills Continued Medications: Albuterol 18 GM Inh (Ventolin Hfa 18 GM Inh) 90 Mcg/Act Aer 2 PUFF INH Q4H PRN for SHORTNESS OF BREATH, #1 INHALER 5 Refills Albuterol Neb (Albuterol Neb) 2.5 Mg/3 Ml Neb 2.5 MG NEB Q4HR NEB PRN for SHORTNESS OF BREATH, #60 NEBULE 11 Refills Buspirone (Buspirone) 15 Mg Tab 15 MG PO DAILY for Anxiety, TAB 0 Refills Cyclobenzaprine (Flexeril) 10 Mg Tab 10 MG PO TID for Muscle Spasm, #60 TAB [address] (Duloxetine DR) 60 Mg Capdr 60 MG PO DAILY, #30 CAP 0 Refills Insulin Glargine Inj (Lantus Inj) 1,000 Unit/10 Ml Vial 10 UNITS SQ HS for Blood Sugar Management, #3 VIAL 1 Refill Ipratropium HFA 12.9 GM Inh (Atrovent HFA 12.9 GM Inh) 17 Mcg/Act Aer 1 PUFF INH QID, #1 INHALER 5 Refills Ipratropium-Albuterol Neb (Duoneb) 0.5-2.5 Mg/3 Ml Neb 1 NEBULE INH Q4HR NEB for SHORTNESS OF BREATH, #120 NEBULE 11 Refills Lisinopril (Lisinopril) 10 Mg Tab 10 MG PO DAILY, #30 TAB 5 Refills Lurasidone (Latuda) 40 Mg Tab 40 MG PO DAILY, #30 TAB 0 Refills Meloxicam (Meloxicam) 7.5 Mg Tab 7.5 MG PO DAILY for Arthritis Pain, #60 TAB 0 Refills Nortriptyline (Nortriptyline) 10 Mg Cap 10 MG PO DAILY for Headaches, #30 CAP 1 Refill Omeprazole (Omeprazole) 40 Mg Cap 40 MG PO DAILY, #30 CAP 5 Refills Ondansetron (Ondansetron) 4 Mg Tab 4 MG PO Q6HR PRN for MILD NAUSEA, #90 UNIT 1 Refill Pioglitazone (Pioglitazone) 45 Mg Tab 45 MG PO DAILY for Blood Sugar Management, #30 TAB 5 Refills Pravastatin (Pravastatin) 20 Mg Tab 20 MG PO DAILY for Cholesterol Management, #30 TAB 5 Refills Lisa Ojeda October 21, 2017 12:12
--- NOTE | 2017-10-21 12:14 | HHI.FF ---
Face to Face Verification Diagnosis: (1) Status post cervical arthrodesis Physical Therapy Order: Improve ambulation, Strength and gait training (no cervical ROM, avoid heavy lifting and overhead ) Home Health Nursing Order: Medical education Signs/symptoms of disease process Diabetic education Medication education-adverse effect Wound care and dressing changes (please see dc orders) Nursing assessment with vital signs Instructions: please monitor glucose I have seen patient Chichi Beckford on 10/21/17. My clinical findings support the need for the requested home health care services because: Ltd mobility - disease progression Deconditioned w/ increased weakness Limited ability to care for self High risk of falls I certify that my clinical findings support that this patient is homebound because: Post-op weakness Unsteady gait/balance Lisa Ojeda October 21, 2017 12:14
--- NOTE | 2017-10-21 12:25 | HHI.NSPN ---
(Lisa Ojeda) Note Status Status: Progress Note (Lisa Ojeda) Interval History Interval History 47 y/o female s/p C4-5, C5-6 anterior cervical discectomy, interbody arthodhesis using PEEK cage filled with autologous bone graft, Simplicity plate and screws. 10/19: c/o severe cervical pain, current pain regimen not enough. asking to stay in hospital one more day. 10/20: Glucose remains elevated in the high 200s, placed on insulin sliding scale. pt reports still painful and not ready for discharge. 10/21: per nursing glucose improved today, pt still reports to be painful but overall better. concerned that he cannot take care of patient on his own following discharge, they do not want SNF. (Lisa Ojeda) Labs, Micro, & Vital Signs Results Date Time Temp Pulse Resp B/P (MAP) Pulse Ox O2 Delivery O2 Flow Rate FiO2 10/21/17 09:17 97 21 10/21/17 08:51 97.5 99 18 134/78 (96) 98 10/20/17 16:00 97.6 113 18 137/67 (90) 97 Constitutional Vital Signs Date Time Temp Pulse Resp B/P (MAP) Pulse Ox O2 Delivery O2 Flow Rate FiO2 10/21/17 09:17 97 21 10/21/17 08:51 97.5 99 18 134/78 (96) 98 10/20/17 16:00 97.6 113 18 137/67 (90) 97 (Lisa Ojeda) Review of Systems Constitutional: DENIES: Fever Cardiovascular: DENIES: Chest pain Musculoskeletal: COMPLAINS OF: Muscle aches, Stiffness, Neck pain Neurologic: COMPLAINS OF: Paresthesias, Poor Balance (Lisa Ojeda) Physical Exam Optifoam dressing clean and dry Neck: immobilized by Leadore collar Musculoskeletal: stable 4+/5 deltoid, biceps, triceps and cigar head pegger bilaterally. In the lower extremities, strength is 5/5. Neuro: Alert and oriented. Cranial nerves pupils equal. Facial motor symmetric. (Lisa Ojeda) Medications Current Medications Current Medications Medications (Trade) Dose Ordered Sig/Sarah Beth Route PRN Reason Start Time Stop Time Status Last Admin Dose Admin Chlorhexidine Gluconate (Chlorhexidine 2% Cloth) 1 pack Q3D TOPICAL 10/18/17 07:00 10/24/17 07:01 Sodium Chloride 1,000 ml @ 100 mls/hr Q10H IV 10/18/17 13:34 10/20/17 05:04 Bisacodyl (Dulcolax Supp) 10 mg DAILY PRN RECTAL CONSTIPATION 10/18/17 13:45 Docusate Sodium (Colace) 100 mg BID PO 10/18/17 21:00 10/21/17 08:58 Magnesium Hydroxide (Milk Of Magnesia Liq) 30 ml DAILY PRN PO Mild-moderate constipation 10/18/17 13:45 Pantoprazole Sodium (Protonix) 40 mg DAILY PO 10/19/17 09:00 10/21/17 08:58 Pantoprazole Sodium (Protonix Inj) 40 mg DAILY IVP 10/19/17 09:00 Ondansetron HCl (Zofran Inj) 4 mg Q6H PRN IV NAUSEA OR VOMITING 10/18/17 13:45 10/20/17 08:27 Acetaminophen/ Hydrocodone Bitart (Badger 10-325 Mg) 1 tab Q4H PRN PO PAIN SCALE 1 TO 5 10/18/17 13:45 10/19/17 20:30 Acetaminophen/ Hydrocodone Bitart (Badger 10-325 Mg) 2 tab Q4H PRN PO PAIN SCALE 6 TO 10 10/18/17 13:45 10/21/17 08:59 Cyclobenzaprine HCl (Flexeril) 10 mg Q8H PRN PO MUSCLE SPASM 10/18/17 13:45 10/20/17 05:03 Clonidine (Catapres) 0.1 mg Q6H PRN PO/NG SYS BP GREATER THAN 170 MMHG 10/18/17 13:45 Acetaminophen (Tylenol) 650 mg Q4H PRN PO TEMPERATURE > 101.5 F 10/18/17 13:45 Menthol (Champion Joel) 1 lozenge UNSCH PRN BUCCAL SORE THROAT 10/18/17 13:45 Albuterol Sulfate (Albuterol Neb) 2.5 mg Q4HR NEB PRN INH WHEEZING 10/18/17 13:45 Albuterol Sulfate (Proair Hfa Inh) 2 puff Q4H PRN INH SHORTNESS OF BREATH 10/18/17 13:45 Buspirone HCl (Buspar) 15 mg DAILY PO 10/19/17 09:00 10/21/17 08:58 Insulin Detemir (Levemir Inj) 10 units HS SQ 10/18/17 21:00 10/20/17 21:16 Albuterol/ Ipratropium (Duoneb Neb) 2 ampule Q4HR NEB INH 10/18/17 16:00 10/21/17 09:14 Lisinopril (Prinivil) 10 mg DAILY PO 10/19/17 09:00 10/21/17 08:58 Lurasidone HCl (Latuda) 40 mg DAILY PO 10/19/17 09:00 10/21/17 08:58 Nortriptyline HCl (Pamelor) 10 mg DAILY PO 10/19/17 09:00 10/21/17 08:58 Pioglitazone HCl (Actos) 45 mg DAILY PO 10/19/17 09:00 10/21/17 08:58 Pravastatin Sodium (Pravachol) 20 mg DAILY PO 10/19/17 09:00 10/21/17 08:58 Ondansetron HCl (Zofran Odt) 4 mg Q6H PRN PO NAUSEA OR VOMITING 10/18/17 14:30 Tiotropium Gustavus (Spiriva Inh) 18 mcg DAILY INH 10/19/17 09:00 10/19/17 09:00 Hydromorphone HCl (Dilaudid Pf Inj) 1 mg Q2HR PRN IV PUSH SEE LABEL COMMENTS 10/19/17 11:00 Ketorolac Tromethamine (Toradol Inj) 30 mg Q6HR IV PUSH 10/19/17 12:00 10/24/17 11:59 10/21/17 06:21 Gabapentin (Neurontin) 300 mg TID PO 10/19/17 13:00 10/21/17 08:58 Dextrose (D50w (Vial) Inj) 50 ml UNSCH PRN IV PUSH HYPOGLYCEMIA-SEE COMMENTS 10/19/17 13:30 Glucagon (Glucagon Inj) 1 mg UNSCH PRN OTHER HYPOGLYCEMIA-SEE COMMENTS 10/19/17 13:30 Dextrose (D50w (Vial) Inj) 50 ml UNSCH PRN IV PUSH HYPOGLYCEMIA-SEE COMMENTS 10/20/17 09:30 Glucagon (Glucagon Inj) 1 mg UNSCH PRN OTHER HYPOGLYCEMIA-SEE COMMENTS 10/20/17 09:30 Insulin Aspart (NovoLOG SUPPLEMENTAL SCALE) 1 ACHS SLIDING SCALE SQ 10/20/17 12:00 10/21/17 08:58 Nitrofurantoin Macrocrystals (Macrobid) 100 mg BIDPC PO 10/20/17 18:00 10/21/17 08:58 (Lisa Ojeda) Medical Decision Making MDM Remarks 47 y/o female s/p C4-5, C5-6 anterior cervical discectomy, interbody arthrodesis using PEEK cage filled with autologous bone graft, Simplicity plate and screws, POD 3 intractable cervical pain, uncontrolled pain, improving Uncontrolled diabetes, improved glucose (Lisa Ojeda) Plan Plan Remarks continue current pain regimen, continue insulin sliding scale, Dr. Greenberg cleared for discharge home dw patient to follow up with PCP next week, cont glucose monitoring at home, she is on home insulin, maintain Leadore collar cont on Macrobid 100 mg bid dc home with HHC and PT to start tomorrow (Lisa Ojeda) Attending Statement The exam, history, and the medical decision-making described in the above note were completed with the assistance of the mid-level provider. I reviewed and agree with the findings presented. I attest that I had a [id number] encounter with the patient on the same day, and personally performed and documented my assessment and findings in the medical record. (Bennett Greenberg MD) Lisa Ojeda October 21, 2017 12:25 Bennett Greenberg MD October 22, 2017 14:05
[2017-10-21 12:59] VITALS: BP 123/70; PULSE 107; RESP 20; TEMP 97.8; O2SAT 95
== END 2017-10-21 15:01 | disposition home health service (06) ==
LOC: HSDC 05:59 → HSDI 13:38 → N05B 15:00
PROVIDERS: ADMIT Neurological Surgery; ATTEND Neurological Surgery
DX: M50.10 Cervical disc disorder with radiculopathy, unspecified cervical region (principal); M50.30 Other cervical disc degeneration, unspecified cervical region; M47.9 Spondylosis, unspecified; G89.18 Other acute postprocedural pain; J45.909 Unspecified asthma, uncomplicated; N39.0 Urinary tract infection, site not specified; B96.20 Unspecified Escherichia coli [E. coli] as the cause of diseases classified elsewhere; E11.65 Type 2 diabetes mellitus with hyperglycemia; E66.9 Obesity, unspecified; Z79.4 Long term (current) use of insulin; Z68.34 Body mass index [BMI] 34.0-34.9, adult
CPT/HCPCS: 00600; 20936; 22551; 22552; 22842; 22853; 72020; 72040; 76000; 80053; 81001; 82948; 85027; 87077; 87086; 87102; 87186; 94150; 94640; 94664; 96361; 96365; 96372; 96375; 96376; 97162; C1713; G0378; G8987; G8988; J0131; J0690; J1100; J1170; J1580; J1815; J1885; J2175; J2250; J2370; J2405; J3010; J3370; J7030; J7120; L0150; L0172; 87206